=== PATIENT | male | born 1955 | race Caucasian/White ===

== ENCOUNTER 2021-12-24 09:54 | Outpatient (CLI) | payer MEDICARE, SELFPAY ==
[2021-12-24 19:39] LABS: Alanine Aminotransferase 25 U/L (6-50); Albumin Level 4.7 g/dL (3.5-5.1); Alkaline Phosphatase 94 U/L (38-126); Anion Gap 7 mmol/L (8-16); Aspartate Amino Transferase 55 U/L (17-59); Bilirubin,Total 1.1 mg/dL (0.2-1.3); Blood Urea Nitrogen 13 mg/dL (9-20); Calcium 9.3 mg/dL (8.4-10.2); Carbon Dioxide 30 mmol/L (22-30); Chloride 102 mmol/L (98-107); Estimated Glomerular Filt Rate > 60; Glucose 97 mg/dL (65-110); Potassium 4.7 mmol/L (3.4-5.0); Sodium 139 mmol/L (137-145)
[2021-12-24 19:45] LABS: Basophils Absolute Auto 0.1 K/mm3 (0.0-0.1); Basophils Percent Auto 1.1 % (0.2-1.2); Eosinophils Absolute Auto 0.2 K/mm3 (0-0.3); Eosinophils Percent Auto 3.6 % (0-4.4); Hematocrit 51.8 % (42.0-52.0); Hemoglobin 16.7 g/dL (14.0-18.0); Immature Granulocyte Absolute 0.01 K/mm3 (0.00-0.031); Immature Granulocyte Percent A 0.2 % (0-0.5); Lymphocytes Percent Auto 33.7 % (18.3-44.2); Mean Corpuscular HGB Conc 32.2 g/dl (32-36); Mean Corpuscular Volume 96.1 fl (80-100); Mean Platelet Volume 12.9 fl (7.4-10.4); Monocytes Absolute Auto 0.3 K/mm3 (0.1-0.6); Monocytes Percent Auto 6.7 % (2.6-8.5); Neutrophils Absolute Auto 2.6 K/mm3 (1.3-6.7); Neutrophils Percent Auto 54.7 % (45.5-73.1); Platelet Count Result 169 k/mm3 (150-375); Red Blood Count 5.39 M/mm3 (4.6-6.20); White Blood Count 4.8 K/mm3 (4.5-10.0)
[2021-12-24 22:03] LABS: Cholesterol 227 mg/dL (0-200); HDL Direct 52 mg/dL; Triglycerides 119 mg/dL (<150)
[2021-12-24 22:14] LABS: LDL Cholesterol Direct 132 mg/dL
== END 2021-12-24 09:55 | disposition home or self-care (01) ==
PROVIDERS: PCP Family Medicine; Visit Provider Family Medicine
DX: E78.5 Hyperlipidemia, unspecified (principal); I10 Essential (primary) hypertension; Z79.899 Other long term (current) drug therapy
CPT/HCPCS: 36415; 80053; 80061; 85025

== ENCOUNTER 2023-01-04 07:03 | Outpatient (CLI) | payer MEDICARE, SELFPAY ==
[2023-01-04 19:00] LABS: Hematocrit 50.8 % (42.0-52.0); Hemoglobin 15.6 g/dL (14.0-18.0); Mean Corpuscular HGB Conc 30.7 g/dl (32-36); Mean Corpuscular Hemoglobin 29.9 pg (26-34); Mean Corpuscular Volume 97.5 fl (80-100); Mean Platelet Volume 12.9 fl (7.4-10.4); Platelet Count Result 153 k/mm3 (150-375); Red Blood Count 5.21 M/mm3 (4.6-6.20); Red Cell Distribution Width 13.2 % (11.5-14.5); White Blood Count 5.5 K/mm3 (4.5-10.0)
[2023-01-04 19:14] LABS: Alanine Aminotransferase 22 U/L (6-50); Albumin Level 4.4 g/dL (3.5-5.1); Alkaline Phosphatase 75 U/L (38-126); Anion Gap 9 mmol/L (8-16); Aspartate Amino Transferase 54 U/L (17-59); Bilirubin,Total 0.9 mg/dL (0.2-1.3); Blood Urea Nitrogen 13 mg/dL (9-20); Calcium 9.3 mg/dL (8.4-10.2); Carbon Dioxide 25 mmol/L (22-30); Chloride 104 mmol/L (98-107); Estimated Glomerular Filt Rate > 60; Glucose 105 mg/dL (65-110); Potassium 4.4 mmol/L (3.4-5.0); Sodium 138 mmol/L (137-145)
== END 2023-01-04 07:04 | disposition home or self-care (01) ==
PROVIDERS: PCP Family Medicine; Visit Provider Family Medicine
DX: E78.5 Hyperlipidemia, unspecified (principal); I10 Essential (primary) hypertension; Z00.00 Encounter for general adult medical examination without abnormal findings; Z13.89 Encounter for screening for other disorder; Z80.8 Family history of malignant neoplasm of other organs or systems; Z12.5 Encounter for screening for malignant neoplasm of prostate
CPT/HCPCS: 36415; 80053; 84153; 85027; G0103

== ENCOUNTER 2023-06-28 14:43 | Outpatient (CLI) | payer MEDICARE, SELFPAY ==
[2023-06-28 19:48] LABS: Hematocrit 48.9 % (42.0-52.0); Hemoglobin 15.4 g/dL (14.0-18.0); Mean Corpuscular HGB Conc 31.5 g/dl (32-36); Mean Corpuscular Hemoglobin 29.9 pg (26-34); Mean Platelet Volume 13.3 fl (7.4-10.4); Platelet Count Result 145 k/mm3 (150-375); Red Blood Count 5.15 M/mm3 (4.6-6.20); Red Cell Distribution Width 12.8 % (11.5-14.5); White Blood Count 6.3 K/mm3 (4.5-10.0)
[2023-06-28 20:02] LABS: Alanine Aminotransferase 24 U/L (6-50); Albumin Level 4.7 g/dL (3.5-5.1); Alkaline Phosphatase 82 U/L (38-126); Anion Gap 7 mmol/L (4-12); Aspartate Amino Transferase 51 U/L (17-59); Bilirubin,Total 1.1 mg/dL (0.2-1.3); Blood Urea Nitrogen 18 mg/dL (9-20); Calcium 9.1 mg/dL (8.4-10.2); Carbon Dioxide 24 mmol/L (22-30); Chloride 109 mmol/L (98-107); Cholesterol 214 mg/dL (0-200); Estimated Glomerular Filt Rate > 60; Glucose 92 mg/dL (65-110); HDL Direct 63 mg/dL; Potassium 4.1 mmol/L (3.4-5.0); Sodium 140 mmol/L (137-145); Triglycerides 104 mg/dL (<150)
[2023-06-28 20:13] LABS: LDL Cholesterol Direct 130 mg/dL
[2023-06-28 20:17] LABS: Vitamin D 25 Hydroxy 25.5 ng/mL
== END 2023-06-28 14:44 | disposition home or self-care (01) ==
LOC: ANHBWCLAB 14:50
PROVIDERS: PCP Family Medicine; Visit Provider Family Medicine
DX: E78.5 Hyperlipidemia, unspecified (principal); I10 Essential (primary) hypertension; Z79.899 Other long term (current) drug therapy
CPT/HCPCS: 36415; 80053; 80061; 82306; 82607; 85027

== ENCOUNTER 2024-01-05 08:02 | Outpatient (CLI) | payer MEDICARE, SELFPAY ==
[2024-01-05 20:26] LABS: Hematocrit 50.5 % (42.0-52.0); Hemoglobin 16.1 g/dL (14.0-18.0); Mean Corpuscular HGB Conc 31.9 g/dl (32-36); Mean Corpuscular Volume 97.3 fl (80-100); Platelet Count Result 132 k/mm3 (150-375); Red Blood Count 5.19 M/mm3 (4.6-6.20); Red Cell Distribution Width 13.2 % (11.5-14.5); White Blood Count 7.8 K/mm3 (4.5-10.0)
[2024-01-05 21:25] LABS: Alanine Aminotransferase 29 U/L (6-50); Albumin Level 4.4 g/dL (3.5-5.1); Alkaline Phosphatase 88 U/L (38-126); Anion Gap 8 mmol/L (4-12); Aspartate Amino Transferase 45 U/L (17-59); Bilirubin,Total 1.1 mg/dL (0.2-1.3); Blood Urea Nitrogen 19 mg/dL (9-20); Calcium 9.4 mg/dL (8.4-10.2); Carbon Dioxide 29 mmol/L (22-30); Chloride 102 mmol/L (98-107); Estimated Glomerular Filt Rate > 60; Glucose 101 mg/dL (65-110); Sodium 139 mmol/L (137-145)
[2024-01-05 21:56] LABS: Prostate Specific Antigen 1.1 ng/mL (< OR = 4.0)
[2024-01-05 23:09] LABS: Vitamin D 25 Hydroxy 84.4 ng/mL
== END 2024-01-05 08:03 | disposition home or self-care (01) ==
LOC: ANHBWCLAB 08:10
PROVIDERS: PCP Family Medicine; Visit Provider Family Medicine
DX: Z12.5 Encounter for screening for malignant neoplasm of prostate (principal); E78.5 Hyperlipidemia, unspecified; I10 Essential (primary) hypertension; Z79.899 Other long term (current) drug therapy
CPT/HCPCS: 36415; 80053; 82306; 82607; 84153; 85027; G0103

== ENCOUNTER 2024-04-12 08:05 | Outpatient (CLI) | payer MEDICARE, SELFPAY ==
--- OUTSIDE RECORDS SUMMARY | 2024-04-12 08:12 | XMS_ITS ---
Author Organization [facility] Address [address] [place] [address] Phone Care Team Providers Care Wrapper Sheeter Name Role Phone Unavailable Unavailable Unavailable Plan of Treatment No Plan of Treatment Recorded Assessments Includes: Assessments for all patient encounters No Assessments Recorded Medical Equipment - Implanted Devices Includes: Current and historical Devices No Medical Equipment Recorded Medications Administered Includes: Administered Medications in patient's chart No Administered Medications Recorded Results Includes: Results from 04/13/2023 through 04/12/2024 No Results Recorded For Specified Dates History of Present Illness History of Present Illness not supported for this document type No History of Present Illness Recorded Social History No Social History Recorded - Smoking Status Unknown Medical History Includes: Medical History in patient's chart No Medical History Recorded Family History Includes: Family History in patient's chart No Family History Recorded Review of Systems Review of Systems not supported for this document type No Review of Systems Recorded Mental Status No Mental Status Recorded Functional Status No Functional Status Recorded Physical Exam Physical Exam not supported for this document type No Physical Exam Recorded Clinical Notes Includes: Signed Clinical Notes starting from 02/27/2022 No Clinical Notes Recorded
--- OUTSIDE RECORDS SUMMARY | 2024-04-12 08:12 | XMS_ITS | Clinical Summary ---
Author Organization [facility] Address [address] [place] [address] Phone Care Team Providers Care Assistant Women'S Soccer Coach Name Role Phone Unavailable Unavailable Unavailable Reason for Visit and Chief Complaint NEW PATIENT VISIT Plan of Treatment No Plan of Treatment Recorded Assessments Includes: Assessments from this encounter No Assessments Recorded Medical Equipment - Implanted Devices Includes: Current Devices No Medical Equipment Recorded Medications Administered Includes: Administered Medications from this encounter No Administered Medications Recorded Results Includes: Results discussed during this encounter No Results Recorded For Specified Dates History of Present Illness Includes: History of Present Illness from this encounter No History of Present Illness Recorded Social History No Social History Recorded - Smoking Status Unknown Medical History Includes: Medical History addressed during this encounter No Medical History Recorded Family History Includes: Family History addressed during this encounter No Family History Recorded Review of Systems Includes: Review of Systems from this encounter No Review of Systems Recorded Mental Status Includes: Mental Status from this encounter No Mental Status Recorded Functional Status Includes: Functional Status from this encounter No Functional Status Recorded Physical Exam Includes: Physical Exam from this encounter No Physical Exam Recorded Encounters Encounter Provider Location Date Check-In Time Check- Out Time Diagnosis NEW PATIENT VISIT [facility] 7 1:15PM 11:59PM Clinical Notes Includes: Clinical Notes from this encounter No Clinical Notes Recorded
--- OUTSIDE RECORDS SUMMARY | 2024-04-12 08:12 | XMS_ITS ---
Care Plan - [facility] Created on: April 12, 2024 JENARO NAQVI : 1955 Sex: Male Author Organization [facility] Address [address] [place] [address] Phone Care Team Providers Care Teacher Advisor Name Role Phone Unavailable Unavailable Unavailable
--- OUTSIDE RECORDS SUMMARY | 2024-04-12 08:13 | XMS_ITS | Encounter Summary ---
Author Organization [facility] Address [address] [place] [address] Care Team Providers Care Clinical Nursing Assistant Name Role Phone Marsha Garcia PIN TICKET MACHINE OPERATOR Primary Care Provider [phone] Kee Cruz MD Unavailable [phone] Karen Diaz PIN TICKET MACHINE OPERATOR Primary Care Provider [phone] Marsha Garcia PIN TICKET MACHINE OPERATOR Primary Care Provider [phone] Karen Diaz NP Unavailable Karen Diaz NP Primary Care Provider [phone] Sumit Muñoz MD Primary Care Provider [phone] Reason for Visit * Reason Onset Date Comments Scheduling Appointments 09/04/2019 Called f or left hip injection appointment reminder Encounter Details Date Type Department Care Team (Late st Contact Info) Description 09/04/2019 Telephone [facility] [address] [place] [phone] [address] Scheduling Appointments (Called for left hip injection appointment reminder) Social History Tobacco Use Types Packs/Day Years Used Date Smoking Tobacco: Never Smokeless Tobacco: Never Alcohol Use Standard Drinks/Week Comments Yes 0 (1 standard drink = 0.6 oz pur e alcohol) socially PHQ-2 Answer Date Recorded PHQ-2 Score 0 05/12/2019 Sex and Gender Information Value Date Recorded Sex Assigned at Not on file Legal Sex Male 8:53 AM NEUROLOGY PHYSICIAN Gender Identity Male 01/13/2021 7:04 AM NEUROLOGY PHYSICIAN Sexual Orientation Straight 06/16/2019 7: 10 AM CDT documented as of this encounter Plan of Treatment Not on file documented as of this encounter Visit Diagnoses Not on filedocumented in this encounter Care Teams Clinical Nursing Assistant Relationship Specialty Start Date End Date Marsha Garcia NP PCP - General Family Medicine 05/12/19 01/31/20 Karen Diaz NP PCP - General 02/01/20 02/15/20 Marsha Garcia NP PCP - General Family Medicine 02/16/20 01/19/21 Karen Diaz NP PCP - General Family Medicine 01/20/21 03/15/22 Sumit Muñoz MD PCP - General Family Practice 03/16/22 Kee Cruz MD Surgeon Orthopedic Surgery 11/28/19 Karen Diaz NP Nurse Practitioner Family Medicine 02/16/20 03/15/22 documented as of this encounter
--- OUTSIDE RECORDS SUMMARY | 2024-04-12 08:13 | XMS_ITS | Clinical Summary ---
Author Organization [facility] Address [address] [facility] [address] [place] [phone] Phone Care Team Providers Care Valve Fitter Name Role Phone Kee Cruz MD Unavailable [phone] Sumit uMñoz MD Primary Care Provider [phone] Allergies Active Allergy Reactions Criticality Noted Date Comments Iodinated Contrast Media Hives Medium Reaction: Hives, Xbrldnn-Lbj-Vrn Reductase Inhibitors Other (See comments) Low 07/29/2017 Sherley. Has tried 4 different ones. Medications lisinopriL (PRINIVIL,ZESTR IL) 5 mg tablet Take 1 tablet (5 mg total) by mouth daily 90 tablet 1 2 Active aspirin (Ecotrin) 325 mg enteric coated tablet Take 1 tablet (325 mg total) by mouth daily 14 tablet 2 Active ezetimibe (ZETIA) 10 mg tablet Take 1 tablet (10 mg total) by mouth daily Active fluticasone propionate (FLONASE) 50 mcg/actuation nasal spray Administer 1 spray into each nostril daily Active naproxen (NAPROSYN) 500 mg tablet Take 1 tablet (500 mg total) by mouth 2 (two) times a day with meals 60 tablet 2 4 Active Active Problems Problem Noted Date Diagnosed Date Hip abductor tendinitis, right 04/15/2023 History of arthroplasty of right hip 04/15/2023 Diverticulosis of colon without diverticulitis 0 03/16/2022 Class 1 obesity with body ma ss index (BMI) of 31.0 to 31.9 in adult 03/16/2022 Bucket-handle tear of latera l meniscus of right knee as current injury 07/16/2021 Overview (07/16/2021): Added automatically from request for surgery [id number] Assessment & Plan (07/18/2021 9:04 AM CDT): Pt having surgery 08/04/[address] Cruz. Aftercare following right hip joint replacement surgery 05/14/2020 Primary osteoarthritis of right hip 03/11/2020 Primary osteoarthritis of left hip 08/29/2019 History of colon polyps 04/06/2018 Overview (05/12/2019): Colonoscopy done 04/15/18, due again in 5 yrs. 04/2023 will be due Chronic back pain 07/29/2017 Assessment & Plan (05/12/2019 8:32 AM CDT): Discussed/ordered labs, Condition is worsening encouraged healthy, low carbohydrate lifestyle and at least 150min/week of exercise, continue on naproxen 220mg as needed He was taking 2 aleve a day but still can't find a comfortable position. This starts in lower left back, goes down buttock into left ankle He can hardly put socks on He has tried ibuprofen and naproxen, in 2018 he did PT at [facility] which helped, but now it is back with a vengeance He uses heat which seems to help Discussed with patient that this very much sounds like sciatica. We will have patient take naproxen 500mg twice daily as needed. Instructed patient on a couple stretching maneuvers, he may need to see a chiropractor and we will refer back to physical therapy. Recommend alternating ice/heat on the area Bleeding hemorrhoid 07/29/2017 Assessment & Plan (05/12/2019 8:02 AM CDT): Condition is stable, he has hemorrhoids constantly. Pt saw Dr. Monteiro (GI) last year and he was not concerned about it. anusol cream works well. Left hip pain 07/29/2017 Assessment & Plan (05/12/2019 8:32 AM CDT): Discussed/ordered labs, Condition is worsening encouraged healthy, low carbohydrate lifestyle and at least 150min/week of exercise, continue on naproxen 220mg as needed He was taking 2 aleve a day but still can't find a comfortable position. This starts in lower left back, goes down buttock into left ankle He can hardly put socks on He has tried ibuprofen and naproxen, in 2018 he did PT at [facility] which helped, but now it is back with a vengeance He uses heat which seems to help Discussed with patient that this very much sounds like sciatica. We will have patient take naproxen 500mg twice daily as needed. Instructed patient on a couple stretching maneuvers, he may need to see a chiropractor and we will refer back to physical therapy. Recommend alternating ice/heat on the area Fatigue 03/14/2014 Overview (05/15/2016): Fatigue Mixed hyperlipidemia 06/24/2013 Overview (05/14/2016): MIXED HYPERLIPIDEMIA Assessment & Plan (07/18/2021 9:08 AM CDT): Awaiting labs and labs ordered for next visit. Cholesterol was still not at goal last time labs were drawn. Pravastatin was increased to 40mg. Continues Pravastatin and Zetia. Assessment & Plan (01/20/2021 9:36 AM RATE ANALYST): Labs ordered Continues Pravastatin and Zetia Assessment & Plan (05/12/2019 8:04 AM CDT): Discussed/ordered labs, Condition is stable encouraged healthy, low carbohydrate lifestyle and at least 150min/week of exercise, continue on zetia and pravastatin. Push lots of water Hypertension, essential 06/24/2013 Overview (05/15/2016): ELEV BL PRES W/O HYPERTN Assessment & Plan (07/18/2021 9:09 AM CDT): Awaiting labs. BP stable in office. No more symptoms to report. Home Bps at home were within range. Pt stable on Lisinopril 5mg. Assessment & Plan (01/20/2021 9:38 AM RATE ANALYST): Home BP's running 140-150/112 and patient has noted more dizziness (occasionally and visual disturbances). BP initially in office is high, repeat is normal. Will start Lisinopril 5 mg for labile BP and have patient send in home BP's in 2 weeks. Assessment & Plan (05/12/2019 7:59 AM CDT): Home bp readings 121-139/72-82 Pt took bp while on zoom and reading was Localized osteoarthrosis 06/24/2013 Overview (05/15/2016): LOC OSTEOARTH NOS-UNSPEC Assessment & Plan (05/12/2019 7:57 AM CDT): Discussed/ordered labs, Condition is worsening encouraged healthy, low carbohydrate lifestyle and at least 150min/week of exercise, continue on naproxen 220mg as needed He was taking 2 aleve a day but still can't find a comfortable position. This starts in lower left back, goes down buttock into left ankle He can hardly put socks on He has tried ibuprofen and naproxen, in 2018 he did PT at [facility] which helped, but now it is back with a vengeance He uses heat which seems to help Resolved Problems Problem Noted Date Diagnosed Date Resolved Date Elevated lactic acid level 03/17/2022 0 03/17/2022 SBO (small bowel obstruction) 03/16/2022 03/17/2022 Rectal bleeding 04/06/2018 05/12/2019 Overview (04/06/2018): Added automatically from request for surgery [id number] History of colonoscopy with polypectomy 03/25/2018 05/12/2019 Pure hypercholesterolemia 06/24/2013 Overview (05/15/2016): PURE HYPERCHOLESTEROLEM Adiposity 06/24/2013 07/29/2017 Overview (05/15/2016): OBESITY NOS Immunizations Immunization Administration Dates Next Due DTaP 06/03/2005 Influenza, Quadrivalent, Spl it, Preservative Free, Intradermal 02/13/2016 Influenza, Quadrivalent, Spl it, Preservative Free, Intramuscular 01/31/2020,11/18/2018,03/25/2018 Influenza, Trivalent, IM (MDV) 01/20/2021,2014,12/29/2007 Influenza, Unspecified 01/08/2022,2020(Deferred: Patient Refused),07/29/2017(Deferred: Patient Refused) Tdap 01/09/2016 Surgical History Surgery Date Site/Laterality Comments OTHER SURGICAL HISTORY jaw cyst resection COLONOSCOPY last screening 2014 MANDIBLE SURGERY 02/09/1992 N/A Cyst removal from [place] FLUORO GUIDED INJECTION H IP LEFT 09/05/2019 Left FLUORO GUIDED INJECTION HIP RIGHT 02/29/2020 Right JOINT REPLACEMENT HIP ARTHROPLASTY Left EXPLORATORY LAPAROTOMY 03/16/2022 SBO closed look obstruction TOTAL HIP ARTHROPLASTY Right Medical History Medical History Date Comments Lyme disease 1993 lyme disease- ho spitalized for 15 days. Still has some tingling in hands and feet as well as partial paralysis in his face. Cyst of jaw surgically remov ed Hepatitis A 1987 Hyperlipidemia Arthritis 02/2014 Rectal bleeding 04/06/2018 Added automatica lly from request for surgery [id number] History of colonoscopy with polypectomy 03/25/2018 Hypertension 10/2020 Family History Medical History Relation Name Comments Hypertension Brother 1 Harris Katz Hypertension; Stroke Brother 1 Harris Katz Obesity Brother 2 Harpreet Katz Obesity; Hemochromatosis Brother 3 Hemochromato sis; Arthritis Father George Katz Heart failure Father George Katz Congestive hea rt failure; Cause of : Congestive heart failure Hypertension Father George Katz Hypertension; Stroke Father George Katz COPD Mother Vi Katz COPD; Emphysema Mother Vi Katz Other Mother Vi Katz Alive and well; Hypertension Other 1 Family history of Hypertension; Stroke Other 2 Family history of Stroke; Colon cancer Neg Hx Relation Name Status Comments Brother 1 Harris Katz Brother 2 Harpreet Katz Brother 3 Father George Katz Alive Mother Vi Katz Alive Other 1 Other 2 Social History Tobacco Use Types Packs/Day Years Used Date Smoking Tobacco: Never Smokeless Tobacco: Never Alcohol Use Standard Drinks/Week Comments Yes 0 (1 standard drink = 0.6 oz pur e alcohol) socially AUDIT-C Answer Date Recorded Q1: How often do you have a drink containing alc ohol? Monthly or less 03/16/2022 Q2: How many drinks containi ng alcohol do you have on a typical day when you are drinking? 1 or 2 03/16/2022 Q3: How often do you have si x or more drinks on one occasion? Never 03/16/2022 PHQ-2 Answer Date Recorded PHQ-2 Total Score (If total score is 3 or more points, staff should administer the PHQ-9) 0 07/18/2021 Personal Safety Answer Date Recorded Getting School Help Needed Not on file 03/19 Sex and Gender Information Value Date Recorded Sex Assigned at Not on file Legal Sex Male 8:53 AM RATE ANALYST Gender Identity Male 01/13/2021 7:04 AM RATE ANALYST Sexual Orientation Straight 06/16/2019 7: 10 AM CDT Obstetrics History Last Filed Vital Signs Vital Sign Reading Time Taken Comments Blood Pressure 137/91 04/15/2023 11:06 AM RATE ANALYST Pulse 59 04/15/2023 11:06 AM RATE ANALYST Temperature 36.1 C (97 F) 03/18/2022 5:58 AM RATE ANALYST Respiratory Rate 18 03/18/2022 5:58 AM RATE ANALYST Oxygen Saturation 97% 03/18/2022 5:58 AM RATE ANALYST Inhaled Oxygen Concentration - - Weight 88.9 kg (196 lb) 04/15/2023 11:06 AM RATE ANALYST Height 167.6 cm (5' 6 ) 04/15/2023 11:06 AM RATE ANALYST Body Mass Index 31.64 04/15/2023 11:06 AM RATE ANALYST Plan of Treatment Health Maintenance Due Date Last Done Comments Hepatitis B Screening 1974 Pneumococcal vaccine 65+ (1 of 1 - PCV) 2006 Zoster Vaccine (1 of 2) 2006 Well Visit 65+ 2021 11/18/2018, 07/29/2017 Depression Screening 07/18/2022 07/18/2021, 01/20/2021, 01/31/2020, Additional history exists Prostate Cancer Screening-PSA 01/20/2023, 11/18/2018, 07/29/2017 Fall Risk Assessment 03/18/2023 03/18/2022, 01/20/2021, 10/31/2019 Colon Cancer Screening-Colonoscopy 04/16/2023 04/15/2018, 02/08/2015 Covid-19 Vaccine (4 - 2023-2 5 season) 2023 01/20/2021, 06/05/2020, 05/08/2020 Influenza Vaccine (#1) 2023 2, 01/20/2021, 01/31/2020, Additional history exists DTaP/Tdap/Td Vaccine (3 - Td or Tdap) 01/08/2026 01/09/2016, 06/03/2005 Hepatitis C Screening Completed 07/29/2017 Colon Cancer Screening-CT Colonography Discontinued 04/15/2018, 02/08/2015 Colon Cancer Screening-DNA Stool Discontinued 04/16/19, 02/08/2015 Colon Cancer Screening-FIT Discontinued 04/15/2018, Colon Cancer Screening-Sigmoidoscopy Discontinued 04/15/2018, 02/08/2015 Medical Devices Implanted Type Area Hot Metal Car Operator Device Identifier Shelf Expiration Date Model / Serial / Lot [employer] [id number] [place] 58mm Sector Hip Shell Acetabular Gription Sterile Latex Free - [id number] Implanted:Qty: 1 on 2019 by Kee Cruz MD at [facility] Left: Hip [employer] 12/08/2028 [id number] / / [id number] [employer] [id number] [place] 58mm 36mm Hip Neutral Liner Acetabular Altrx Sterile Latex Free - [id number] Implanted:Qty: 1 on 2019 by Kee Cruz MD at [facility] Left: Hip [employer] 09/07/2024 [id number] / / [id number] [employer] [id number] Actis 105mm Collar Hip 5 High Offset Stem Femoral - [id number] Implanted:Qty: 1 on 2019 by Kee Cruz MD at [facility] Left: Hip [employer] 09/07/2029 [id number] / / [id number] [employer] [id number] Articul/Humph[place] 36mm Cementless Hip +1.5mm 12/14 Taper Head Femoral Latex Free - [id number] Implanted:Qty: 1 on 2019 by Kee Cruz MD at [facility] Left: Hip [employer] 09/07/2024 [id number] / / [id number] [employer] [id number] [place] 58mm Sector Hip Shell Acetabular Gription Sterile Latex Free - [id number] Implanted:Qty: 1 on 05/01/2020 by Kee Cruz MD at [facility] Right: Hip [employer] 03/10/2030 [id number] / / [id number] [employer] [id number] [place] 58mm 36mm Hip Neutral Liner Acetabular Altrx Sterile Latex Free - [id number] Implanted:Qty: 1 on 05/01/2020 by Kee Cruz MD at [facility] Right: Hip [employer] 03/10/2025 [id number] / / [id number] [employer] [id number] Actis 105mm Collar Hip 5 High Offset Stem Femoral - [id number] Implanted:Qty: 1 on 05/01/2020 by Kee Cruz MD at [facility] Right: Hip [employer] 02/07/2030 [id number] / / [id number] [employer] [id number] Articul/Humph[place] 36mm Cementless Hip +5mm 12/14 Taper Head Femoral Latex Free - [id number] Implanted:Qty: 1 on 05/01/2020 by Kee Cruz MD at [facility] Right: Hip [employer] 02/07/2025 [id number] / / [id number] Procedures Procedure Name Priority Date/Time Associated Diagnosis Comments PSA SCREEN Routine 01/20/2021 9:34 AM RATE ANALYST Prostate cancer screening COLONOSCOPY 04/15/2018 2:47 PM RATE ANALYST HEPATITIS C ANTIBODY Routine 07/29/2017 9:42 AM CDT Need for hepatitis C screening test from Last 3 Months or Most Recently Relevant to Health Maintenance Results * PSA screen (01/20/2021 9:34 AM RATE ANALYST) PSA-Total 0.91 <=5.40 ng/mL [facility] ([place]) Comment: Interpretive Data AGE SEX REFERENCE INTERVAL 0 minutes-150 years Female None 0 minutes-49 years Male None 50-59 years Male 0-3.90 60-69 years Male 0-5.40 70-79 years Male 0-6.20 80-150 years Male 0-6.20 Current interpretive data last revised 2018. Testing performed by: [facility], [address] [place] [address]., [id number] Blood 01/20/2021 9:34 AM RATE ANALYST 01/20/2021 2:26 PM RATE ANALYST us Karen Diaz FABRICATOR FOAM RUBBER LAB BLOOD ORDERABLES Final Resul t [facility] [address] [facility] Department [place] [address] * COLONOSCOPY (04/15/2018 2:47 PM RATE ANALYST) Anatomical Region Laterality Modality Other Narrative Procedure Note Nirav Euceda MD - 04/15/2018 2:47 PM CST - [facility] Endoscopy Lab Patient Name: Willie Katz Procedure Date: 04/15/2018 2:47 PM Date of : 1955 Admit Type: Outpatient Age: 62 Gender: Male Note Status: Finalized Attending MD: Nirav Euceda M.D. Procedure Date: 04/15/2018 Procedure: Colonoscopy Indications: Rectal bleeding Providers: Nirav Euceda M.D., Kee Shaffer M.D. (Anesthesia Staff), Jasmina Buchanan RN Referring MD: Jesica Ridley Medicines: Monitored Anesthesia Care Complications: No immediate complications. Estimated Blood Loss: Estimated blood loss: none. Estimated blood loss:none. Procedure: Pre-Anesthesia Assessment: - Airway Examination: normal oropharyngeal airwayand neck mobility. - Respiratory Examination: clear to auscultation. - ASA Grade Assessment: III - A patient with severe systemic disease. - After reviewing the risks and benefits, thepatient was deemed in satisfactory condition to undergo the procedure. - The risks and benefits of the procedure and the sedation options and risks were discussed with the patient. All questions were answered and informed consent was obtained. After I obtained informed consent, the scope waspassed under direct vision. Throughout the procedure, the patient's blood pressure, pulse, and oxygensaturations were monitored continuously. The scope was passedunder direct vision. The Colonoscope was introducedthrough the anus and advanced to the the cecum, identifiedby the appendiceal orifice, ileocecal valve andpalpation. The colonoscopy was performed with ease. The patient tolerated the procedure well. The quality of thebowel preparation was evaluated using the BBPS (BostonBowel Preparation Scale) with scores of: Right Colon = 3 (entire mucosa seen well with no residual staining, small fragments of stool or opaque liquid),Transverse Colon = 3 (entire mucosa seen well with no residual staining, small fragments of stool or opaque liquid) and Left Colon = 2 (minor amount of residualstaining, small fragments of stool and/or opaque liquid, but mucosa seen well). The total BBPS score equals 8.The quality of the bowel preparation was good. The bowel preparation used was SUPREP. Findings: The perianal exam findings include skin tags. Multiple small-mouthed diverticula were found in the sigmoid colon. Internal hemorrhoids were found during retroflexion. The hemorrhoids were severe. A medium-sized scar was found in the ascending colon. The scar tissue was healthy in appearance. Impression: - Perianal skin tags found on perianal exam. - Diverticulosis in the sigmoid colon. - Internal hemorrhoids. - No specimens collected. Recommendation: - Repeat colonoscopy in 10 years for screeningpurposes. - Discharge patient to home (ambulatory). - Use original regular Metamucil one teaspoon POBID. - Use Analpram HC Cream 2.5%: Apply externally BIDfor 2 weeks. Procedure Code(s): --- Professional --- 33878, Colonoscopy, flexible; diagnostic, including collection of specimen(s) by brushing or washing,when performed (separate procedure) Diagnosis Code(s): --- Professional --- K64.8, Other hemorrhoids K64.4, Residual hemorrhoidal skin tags K62.5, Hemorrhage of anus and rectum K57.30, Diverticulosis of large intestine without perforation or abscess without bleeding CPT copyright 2017 [employer]. All rights reserved. The codes documented in this report are preliminary and upon regional branch manager reviewmay be revised to meet current compliance requirements. Electronically signed by Nirav Euceda MD Nirav Euceda M.D. 04/15/2018 3:08:01 PM Number of Addenda: 0 Note Initiated On: 04/15/2018 2:47 PM us Nirav Euceda MD ENDOSCOPY PROCEDURES Edited Resu lt - Final * Hepatitis C antibody (07/29/2017 9:42 AM CDT) Hep C Ab Negative Negative JUAN MANUEL Blood specimen (specimen) 07/29/2017 9:42 AM CDT 07/29/2017 10:16 AM CDT Narrative JUAN MANUEL - 07/29/2017 11:14 AM CDT Douganastasiya Montoya Kanika FABRICATOR FOAM RUBBER LAB MICROBIOLOGY - GENERAL ORDERABLES Final Result [facility] MANU[facility] [id number] Department [place] [address] from Last 3 Months or Most Recently Relevant to Health Maintenance [place] [address] [facility] Advance Directives For more information, please contact: [phone] * Full Code (Latest Code Status on File) Date Activated Date Inactivated Comments 03/16/2022 7:32 AM 03/18/2022 5:57 PM * Full Code Date Activated Date Inactivated Comments 2019 11:03 AM 11/28/2019 5:47 PM Care Teams Valve Fitter Relationship Specialty Start Date End Date Sumit Muñoz MD PCP - General Family Practice 03/16/22 Kee Cruz MD Surgeon Orthopedic Surgery 11/28/19
--- OUTSIDE RECORDS SUMMARY | 2024-04-12 08:13 | XMS_ITS | Referral Summary ---
Author Organization [facility] Address [address] [facility] [address] [place] [address] Phone Care Team Providers Care Rehabilitation Tech Name Role Phone Kee Cruz MD Unavailable [phone] Sumit Muñoz MD Primary Care Provider [phone] Allergies Active Allergy Reactions Criticality Noted Date Comments Iodinated Contrast Media Hives Medium Reaction: Hives, Inueohf-Jkt-Lxf Reductase Inhibitors Other (See comments) Low 07/29/2017 [...] (07/16/2021): Added automatically from request for surgery [id number] Assessment & Plan (07/18/2021 9:04 AM CDT): [...] naproxen, in 2018 he did PT at [facility] which helped, but now it is back [...] naproxen, in 2018 he did PT at [facility] which helped, but now it is back [...] Zetia. Assessment & Plan (01/20/2021 9:36 AM SUPERVISOR ADVERTISING DISPATCH CLERKS): Labs ordered Continues Pravastatin and Zetia Assessment [...] 5mg. Assessment & Plan (01/20/2021 9:38 AM SUPERVISOR ADVERTISING DISPATCH CLERKS): Home BP's running 140-150/112 and patient has [...] naproxen, in 2018 he did PT at [facility] which helped, but now it is back with a vengeance He uses heat which seems to help Resolved Problems Problem Noted Date Diagnosed Date Resolved Date Elevated lactic acid level 03/17/2022 0 03/17/2022 SBO (small bowel obstruction) 03/16/2022 03/17/2022 Rectal bleeding 04/06/2018 05/12/2019 Overview (04/06/2018): Added automatically from request for surgery [id number] History of colonoscopy with polypectomy 03/25/2018 05/12/2019 Pure hypercholesterolemia 06/24/2013 Overview (05/15/2016): PURE HYPERCHOLESTEROLEM Adiposity 06/24/2013 07/29/2017 Overview (05/15/2016): OBESITY NOS Immunizations Immunization Administration Dates Next Due DTaP 06/03/2005 Influenza, Quadrivalent, Spl it, Preservative Free, Intradermal 02/13/2016 Influenza, Quadrivalent, Spl it, Preservative Free, Intramuscular 01/31/2020,11/18/2018,03/25/2018 Influenza, Trivalent, IM (MDV) 01/20/2021,2014,12/29/2007 Influenza, Unspecified 01/08/2022,2020(Deferred: Patient Refused),07/29/2017(Deferred: Patient Refused) Tdap 01/09/2016 Social History Tobacco Use Types Packs/Day Years [...] on file Legal Sex Male 8:53 AM SUPERVISOR ADVERTISING DISPATCH CLERKS Gender Identity Male 01/13/2021 7:04 AM SUPERVISOR ADVERTISING DISPATCH CLERKS Sexual Orientation Straight 06/16/2019 7: 10 AM CDT Last Filed Vital Signs Vital Sign Reading Time Taken Comments Blood Pressure 137/91 04/15/2023 11:06 AM SUPERVISOR ADVERTISING DISPATCH CLERKS Pulse 59 04/15/2023 11:06 AM SUPERVISOR ADVERTISING DISPATCH CLERKS Temperature 36.1 C (97 F) 03/18/2022 5:58 AM SUPERVISOR ADVERTISING DISPATCH CLERKS Respiratory Rate 18 03/18/2022 5:58 AM SUPERVISOR ADVERTISING DISPATCH CLERKS Oxygen Saturation 97% 03/18/2022 5:58 AM SUPERVISOR ADVERTISING DISPATCH CLERKS Inhaled Oxygen Concentration - - Weight 88.9 kg (196 lb) 04/15/2023 11:06 AM SUPERVISOR ADVERTISING DISPATCH CLERKS Height 167.6 cm (5' 6 ) 04/15/2023 11:06 AM SUPERVISOR ADVERTISING DISPATCH CLERKS Body Mass Index 31.64 04/15/2023 11:06 AM SUPERVISOR ADVERTISING DISPATCH CLERKS Plan of Treatment Not on file Medical Devices Implanted Type Area Educational Therapy Teacher Device Identifier Shelf Expiration Date Model / Serial / Lot [employer] [id number] Gervais 58mm Sector Hip Shell Acetabular Gription Sterile Latex Free - [id number] Implanted:Qty: 1 on 2019 by Kee Cruz MD at [facility] Left: Hip [employer] 12/08/2028 [id number] / / [id number] [employer] [id number] Gervais 58mm 36mm Hip Neutral Liner Acetabular Altrx Sterile Latex Free - [id number] Implanted:Qty: 1 on 2019 by Kee Cruz MD at [facility] Left: Hip [employer] 09/07/2024 [id number] / / [id number] [employer] [id number] Actis 105mm Collar Hip 5 High Offset Stem Femoral - [id number] Implanted:Qty: 1 on 2019 by Kee Cruz MD at [facility] Left: Hip [employer] 09/07/2029 [id number] / / [id number] [employer] [id number] Articul/Humphrey 36mm Cementless Hip +1.5mm 12/14 Taper Head Femoral Latex Free - [id number] Implanted:Qty: 1 on 2019 by Kee Cruz MD at [facility] Left: Hip [employer] 09/07/2024 [id number] / / [id number] [employer] [id number] Gervais 58mm Sector Hip Shell Acetabular Gription Sterile Latex Free - [id number] Implanted:Qty: 1 on 05/01/2020 by Kee Cruz MD at [facility] Right: Hip [employer] 03/10/2030 [id number] / / [id number] [employer] [id number] Gervais 58mm 36mm Hip Neutral Liner Acetabular Altrx Sterile Latex Free - [id number] Implanted:Qty: 1 on 05/01/2020 by Kee Cruz MD at [facility] Right: Hip [employer] 03/10/2025 [id number] / / [id number] [employer] [id number] Actis 105mm Collar Hip 5 High Offset Stem Femoral - [id number] Implanted:Qty: 1 on 05/01/2020 by Kee Cruz MD at [facility] Right: Hip [employer] 02/07/2030 [id number] / / [id number] [employer] [id number] Articul/Humphrey 36mm Cementless Hip +5mm 12/14 Taper Head Femoral Latex Free - [id number] Implanted:Qty: 1 on 05/01/2020 by Kee Cruz MD at [facility] Right: Hip [employer] 02/07/2025 [id number] / / [id number] Procedures Procedure Name Priority Date/Time Associated Diagnosis Comments PSA SCREEN Routine 01/20/2021 9:34 AM SUPERVISOR ADVERTISING DISPATCH CLERKS Prostate cancer screening COLONOSCOPY 04/15/2018 2:47 PM SUPERVISOR ADVERTISING DISPATCH CLERKS HEPATITIS C ANTIBODY Routine 07/29/2017 9:42 AM CDT Need for hepatitis C screening test from Last 3 Months or Most Recently Relevant to Health Maintenance Results * PSA screen (01/20/2021 9:34 AM SUPERVISOR ADVERTISING DISPATCH CLERKS) PSA-Total 0.91 <=5.40 ng/mL [facility] MANUEL [facility] ([place]) Comment: Interpretive Data AGE SEX REFERENCE INTERVAL 0 minutes-150 years Female None 0 minutes-49 years Male None 50-59 years Male 0-3.90 60-69 years Male 0-5.40 70-79 years Male 0-6.20 80-150 years Male 0-6.20 Current interpretive data last revised 2018. Testing performed by: [facility], [address] [place] [address], [place]., [address] Blood 01/20/2021 9:34 AM SUPERVISOR ADVERTISING DISPATCH CLERKS 01/20/2021 2:26 PM SUPERVISOR ADVERTISING DISPATCH CLERKS us Karen Diaz FREELANCE PATTERNMAKER LAB BLOOD ORDERABLES Final Resul t [id number] ([facility]) [facility] Department [place] [address] * COLONOSCOPY (04/15/2018 2:47 PM SUPERVISOR ADVERTISING DISPATCH CLERKS) Anatomical Region Laterality Modality Other Narrative Procedure Note Niarv Euceda MD - 04/15/2018 2:47 PM CST [facility] Patient Name: Willie Katz Procedure Date: 04/15/2018 2:47 PM Date of : 1955 Admit Type: Outpatient Age: 62 Gender: Male Note Status: Finalized Attending MD: Nirav Euceda M.D. Procedure Date: 04/15/2018 Procedure: Colonoscopy Indications: Rectal bleeding Providers: Nirav Euceda M.D., Kee Shaffer M.D. (Anesthesia Staff), Jasmina Buchanan RN Referring MD: Seth Ridley.N.Jairo. Medicines: Monitored Anesthesia Care Complications: No immediate [...] 2 weeks. Procedure Code(s): --- Professional --- 56019, Colonoscopy, flexible; diagnostic, including collection of specimen(s) by brushing or washing,when performed (separate procedure) Diagnosis Code(s): --- Professional --- K64.8, Other hemorrhoids K64.4, Residual hemorrhoidal skin tags K62.5, Hemorrhage of anus and rectum K57.30, Diverticulosis of large intestine without perforation or abscess without bleeding CPT copyright 2017 [employer]. All rights reserved. The codes documented in this report are preliminary and upon director television reviewmay be revised to meet current compliance requirements. Electronically signed by Nirav Euceda MD Nirav Euceda M.D. 04/15/2018 3:08:01 PM Number of Addenda: 0 Note Initiated On: 04/15/2018 2:47 PM Nirav Euceda MD ENDOSCOPY PROCEDURES Edited Resu lt - Final * Hepatitis C antibody (07/29/2017 9:42 AM CDT) Hep C Ab Negative Negative JUAN MANUEL Blood specimen (specimen) 07/29/2017 9:42 AM CDT 07/29/2017 10:16 AM CDT Narrative JUAN MANUEL - 07/29/2017 11:14 AM CDT Doug Boudreaux NP LAB MICROBIOLOGY - GENERAL ORDERABLES Final Result JUAN MANUEL [id number] Department [place] [address] from Last 3 Months or Most Recently Relevant to Health Maintenance Insurance MED[employer]ARE [employer] MEDICARE GOLD Advance Directives For more information, please contact: [phone] * Full Code (Latest Code Status on File) Date Activated Date Inactivated Comments 03/16/2022 7:32 AM 03/18/2022 5:57 PM * Full Code Date Activated Date Inactivated Comments 2019 11:03 AM 11/28/2019 5:47 PM Care Teams Rehabilitation Tech Relationship Specialty Start Date End Date Sumit Muñoz MD PCP - General Family Practice 03/16/22 Kee Cruz MD Surgeon Orthopedic Surgery 11/28/19
[2024-04-12 08:34] LABS: Hematocrit 48.1 % (42.0-52.0); Hemoglobin 15.5 g/dL (14.0-18.0); Mean Corpuscular HGB Conc 32.2 g/dl (32-36); Mean Corpuscular Hemoglobin 30.4 pg (26-34); Mean Corpuscular Volume 94.3 fl (80-100); Mean Platelet Volume 12.3 fl (7.4-10.4); Platelet Count Result 140 k/mm3 (150-375); Red Cell Distribution Width 12.9 % (11.5-14.5); White Blood Count 5.6 K/mm3 (4.5-10.0)
== END 2024-04-12 08:06 | disposition home or self-care (01) ==
PROVIDERS: PCP Family Medicine; Visit Provider Family Medicine
DX: E78.5 Hyperlipidemia, unspecified (principal); D69.6 Thrombocytopenia, unspecified
CPT/HCPCS: 36415; 85027

== ENCOUNTER 2024-04-28 10:10 | Outpatient (CLI) | payer MEDICARE, SELFPAY ==
[2024-04-28 10:50] LABS: Basophils Percent Auto 0.6 % (0.2-1.2); Eosinophils Absolute Auto 0.1 K/mm3 (0-0.3); Eosinophils Percent Auto 2.3 % (0-4.4); Hematocrit 45.5 % (42.0-52.0); Hemoglobin 14.9 g/dL (14.0-18.0); Immature Granulocyte Absolute 0.02 K/mm3 (0.00-0.031); Immature Granulocyte Percent A 0.4 % (0-0.5); Lymphocytes Absolute Auto 2.03 K/mm3 (0.9-3.2); Lymphocytes Percent Auto 38.5 % (18.3-44.2); Mean Corpuscular HGB Conc 32.7 g/dl (32-36); Mean Corpuscular Hemoglobin 30.2 pg (26-34); Mean Corpuscular Volume 92.1 fl (80-100); Mean Platelet Volume 11.9 fl (7.4-10.4); Monocytes Absolute Auto 0.4 K/mm3 (0.1-0.6); Monocytes Percent Auto 7.2 % (2.6-8.5); Neutrophils Absolute Auto 2.7 K/mm3 (1.3-6.7); Platelet Count Result 172 k/mm3 (150-375); Red Blood Count 4.94 M/mm3 (4.6-6.20); Red Cell Distribution Width 12.3 % (11.5-14.5); White Blood Count 5.3 K/mm3 (4.5-10.0)
--- OUTSIDE RECORDS SUMMARY | 2024-04-28 11:17 | XMS_ITS ---
Author Organization [facility] Address [address] [place] [address] Phone Care Team Providers Care Automobile Service Station Manager Name Role Phone Unavailable Unavailable Unavailable Plan of Treatment No Plan of Treatment Recorded Assessments Includes: Assessments for all patient encounters No Assessments Recorded Medical Equipment - Implanted Devices Includes: Current and historical Devices No Medical Equipment Recorded Medications Administered Includes: Administered Medications in patient's chart No Administered Medications Recorded Results Includes: Results from 04/29/2023 through 04/28/2024 No Results Recorded For Specified Dates History [...]
--- OUTSIDE RECORDS SUMMARY | 2024-04-28 11:17 | XMS_ITS | Continuity of Care Document ---
Author Organization [facility] Address [address] [place] [address] Phone Care Team Providers Care City Alderman Name Role Phone Bartolo SWARTZ, Lakeisha Unavailable Unavailable Advance Directives Directive Yes / No Effective Date File Name No Information Encounters Encounter Description Practice Location Reason(s) For Visit Diagnoses Date Provider Providers Copied on Encounter [facility], [address], [place], [place], [id number], [place] tel:[phone] [facility] No Information Bartolo Suazo. [address] [place], [place], [id number] , [place]. tel:[phone] Family History Family Member Type Diagnosis Age At Onset No Information Payers Payer name Insurance type Covered constitution party ID Authoriza tion(s) No Information Social History Type Description Quantity Date Captured Comments Sex Male Smoking Status No Information Chief Complaint And Reason For Visit No Information Reason For Referral Reason For Referral No Information History Of Present Illness Encounter Date Complaint History Of Prese nt Illness No Information Functional Status Date Functional Assessmen t No Information Instructions Date Instruction Additional Infor mation No Information Assessments Type Assessment Date No Information Patient Care Teams Name Effective Dates (start - stop) Status Members No Information
--- OUTSIDE RECORDS SUMMARY | 2024-04-28 11:18 | XMS_ITS | Encounter Summary ---
Author Organization [facility] Address [address] [place] [address] Care Team Providers Care Export Sales Assistant Name Role Phone Marsha Garcia CELLULAR PLASTICS CUTTER Primary Care Provider Kee Cruz MD Unavailable [phone] Karen Diaz CELLULAR PLASTICS CUTTER Primary Care Provider [phone] Marsha Garcia CELLULAR PLASTICS CUTTER Primary Care Provider [phone] Karen Diaz NP Unavailable Karen Diaz NP Primary Care Provider [phone] Sumit Muñoz MD Primary Care Provider [phone] Reason for Visit * Reason Onset Date Comments Scheduling Appointments 09/04/2019 Called f or left hip injection appointment reminder Encounter Details Date Type Department Care Team (Late st Contact Info) Description 09/04/2019 Telephone [facility] [address] [place] [id number] Norma Suazo RT Scheduling Appointments (Called for [...] on file Legal Sex Male 8:53 AM ORNAMENTER HAND Gender Identity Male 01/13/2021 7:04 AM ORNAMENTER HAND Sexual Orientation Straight 06/16/2019 7: 10 AM CDT documented as of this encounter Plan of Treatment Not on file documented as of this encounter Visit Diagnoses Not on filedocumented in this encounter Care Teams Export Sales Assistant Relationship Specialty Start Date End Date [...]
--- OUTSIDE RECORDS SUMMARY | 2024-04-28 11:18 | XMS_ITS ---
Care Plan - [facility] Created on: April 28, 2024 JENARO NAQVI : 1955 Sex: Male Author Organization [facility] Address [address] [place] [address] Phone Care Team Providers Care Roll Hand Name Role Phone Unavailable Unavailable Unavailable
--- OUTSIDE RECORDS SUMMARY | 2024-04-28 11:18 | XMS_ITS | Referral Summary ---
Author Organization [facility] Address [address] [facility] [address] [place] [id number] Phone Care Team Providers Care Army Manager Name Role Phone Kee Cruz MD Unavailable [phone] Sumit Muñoz MD Primary Care Provider [phone] Allergies Active Allergy Reactions Criticality Noted Date Comments Iodinated Contrast Media Hives Medium Reaction: Hives, Yydxusd-Kwn-Tod Reductase Inhibitors Other (See comments) Low 07/29/2017 [...] (07/16/2021): Added automatically from request for surgery [id number] Assessment & Plan (07/18/2021 9:04 AM CDT): [...] naproxen, in 2018 he did PT at [facility] which helped, but now it is back [...] naproxen, in 2018 he did PT at [facility] which helped, but now it is back [...] Zetia. Assessment & Plan (01/20/2021 9:36 AM NET SOLUTIONS ARCHITECT): Labs ordered Continues Pravastatin and Zetia Assessment [...] 5mg. Assessment & Plan (01/20/2021 9:38 AM NET SOLUTIONS ARCHITECT): Home BP's running 140-150/112 and patient has [...] naproxen, in 2018 he did PT at [facility] which helped, but now it is back with a vengeance He uses heat which seems to help Resolved Problems Problem Noted Date Diagnosed Date Resolved Date Elevated lactic acid level 03/17/2022 0 03/17/2022 SBO (small bowel obstruction) 03/16/2022 03/17/2022 Rectal bleeding 04/06/2018 05/12/2019 Overview (04/06/2018): Added automatically from request for surgery [id number] History of colonoscopy with polypectomy 03/25/2018 05/12/2019 [...] on file Legal Sex Male 8:53 AM NET SOLUTIONS ARCHITECT Gender Identity Male 01/13/2021 7:04 AM NET SOLUTIONS ARCHITECT Sexual Orientation Straight 06/16/2019 7: 10 AM CDT Last Filed Vital Signs Vital Sign Reading Time Taken Comments Blood Pressure 137/91 04/15/2023 11:06 AM NET SOLUTIONS ARCHITECT Pulse 59 04/15/2023 11:06 AM NET SOLUTIONS ARCHITECT Temperature 36.1 C (97 F) 03/18/2022 5:58 AM NET SOLUTIONS ARCHITECT Respiratory Rate 18 03/18/2022 5:58 AM NET SOLUTIONS ARCHITECT Oxygen Saturation 97% 03/18/2022 5:58 AM NET SOLUTIONS ARCHITECT Inhaled Oxygen Concentration - - Weight 88.9 kg (196 lb) 04/15/2023 11:06 AM NET SOLUTIONS ARCHITECT Height 167.6 cm (5' 6 ) 04/15/2023 11:06 AM NET SOLUTIONS ARCHITECT Body Mass Index 31.64 04/15/2023 11:06 AM NET SOLUTIONS ARCHITECT Plan of Treatment Not on file Medical Devices Implanted Type Area Injection Molding Operator Device Identifier Shelf Expiration Date Model / Serial / Lot [employer] [id number] Moberly 58mm Sector Hip Shell Acetabular Gription Sterile Latex Free - [id number] Implanted:Qty: 1 on 2019 by Kee Cruz MD at [facility] Left: Hip [employer] 12/08/2028 [id number] / / [id number] [employer] [id number] Moberly 58mm 36mm Hip Neutral Liner Acetabular Altrx Sterile Latex Free - [id number] Implanted:Qty: 1 on 2019 by Kee Cruz MD at [facility] Left: Hip [employer] 09/07/2024 [id number] / / [id number] [employer] [id number] Actis 105mm Collar Hip 5 High Offset Stem Femoral - [id number] Implanted:Qty: 1 on 2019 by Kee Cruz MD at [facility] Left: Hip [employer] 09/07/2029 [id number] / / [id number] [employer] [id number] Articul/Humphrey 36mm Cementless Hip +1.5mm 12/14 Taper Head Femoral Latex Free - [id number] Implanted:Qty: 1 on 2019 by Kee Cruz MD at [facility] Left: Hip [employer] 09/07/2024 [id number] / / [id number] [employer] [id number] Moberly 58mm Sector Hip Shell Acetabular Gription Sterile Latex Free - [id number] Implanted:Qty: 1 on 05/01/2020 by Kee Cruz MD at [facility] Right: Hip [employer] 03/10/2030 [id number] / / [id number] [employer] [id number] Moberly 58mm 36mm Hip Neutral Liner Acetabular Altrx Sterile Latex Free - [id number] Implanted:Qty: 1 on 05/01/2020 by Kee Cruz MD at [facility] Right: Hip [employer] 03/10/2025 [id number] / / [id number] [employer] [id number] Actis 105mm Collar Hip 5 High Offset Stem Femoral - [id number] Implanted:Qty: 1 on 05/01/2020 by Kee Cruz MD at [facility] Right: Hip [employer] 02/07/2030 [id number] / / [id number] [employer] [id number] Articul/Humphrey 36mm Cementless Hip +5mm 12/14 Taper Head Femoral Latex Free - [id number] Implanted:Qty: 1 on 05/01/2020 by Kee Cruz MD at [facility] Right: Hip [employer] 02/07/2025 [id number] / / [id number] Procedures Procedure Name Priority Date/Time Associated Diagnosis Comments CT ABDOMEN PELVIS WO CONTRAST ED 03/16/2022 7:05 AM NET SOLUTIONS ARCHITECT PSA SCREEN Routine 01/20/2021 9:34 AM NET SOLUTIONS ARCHITECT Prostate cancer screening COLONOSCOPY 04/15/2018 2:47 PM NET SOLUTIONS ARCHITECT HEPATITIS C ANTIBODY Routine 07/29/2017 9:42 AM CDT Need for hepatitis C screening test from Last 3 Months or Most Recently Relevant to Health Maintenance Results * CT Abdomen Pelvis WO Contrast (03/16/2022 7:05 AM NET SOLUTIONS ARCHITECT) Anatomical Region Laterality Modality Body N/A Computed Tomogra phy 03/16/2022 7:08 AM NET SOLUTIONS ARCHITECT Narrative 03/16/2022 7:25 AM NET SOLUTIONS ARCHITECT EXAM DESCRIPTION: CT ABDOMEN PELVIS WO CONTRAST REASON FOR STUDY: LLQ abdominal pain, diverticulitis suspected LLQ pain started early this morning. TECHNIQUE: CT scan of the abdomen and pelvis performed without intravenous and without oral contrast using helical scanning technique. Reconstructed coronal and sagittal MPR images reviewed. All images stored on PACS. Automated exposure control was used as a dose optimization technique for this examination. COMPARISON: None available FINDINGS: The sensitivity for detection of visceral lesions is diminished without the use of intravenous contrast. LOWER CHEST: No focal consolidation, mass or nodule in the visualized lung. No pleural or pericardial effusion. LIVER: Normal size and contour. No focal liver lesions seen. GALLBLADDER: Unremarkable. BILE DUCTS: No intrahepatic or extrahepatic biliary dilation. SPLEEN: Normal size. No focal lesions. PANCREAS: Normal parenchymal bulk and contour. No duct dilation or inflammation. ADRENALS: Normal. KIDNEYS/URINARY TRACT: Normal and symmetric renal size and contour. There are multiple nonobstructing stones in the left kidney, the largest measuring up to 4 mm in the mid to lower kidney. There is a nonobstructing 5 mm stone at the right upper pole. Additional punctate stones bilaterally. No obstructing stones. No hydroureteronephrosis. There are multiple right renal cysts. Urinary bladder is not well visualized secondary to beam hardening artifact from bilateral hip arthroplasties. GI: Stomach is unremarkable. There is a closed loop small bowel obstruction, involving a segment of mildly distended, but fluid-filled, isolated, and inflamed small bowel in the midline mid to lower abdomen. These loops appear distended, though not frankly dilated, but there is significant surrounding fat stranding. There are 2 transition points in very close proximity. 1 is seen just to the left of midline with sharp beaking of the bowel lumen (series 2, image 93, series 3, image 30 3-34). The 2nd is seen as a very short focal narrowing, with the proximal portion of the closed loop appearing relatively nondistended, and the upstream small bowel appearing mildly distended (series 2 images 83-89, series 3 images 22-28). These 2 transition points are seen within approximately 2-3 cm of each other. As of yet, there is not overt evidence of ischemia such as pneumatosis. The overall small bowel pattern is not notably obstructive, despite the presence of this closed loop obstruction. Normal appendix is seen inferior to the cecum. There is marked colonic diverticulosis, particularly in the descending and sigmoid colon, without evidence of acute diverticulitis. PERITONEUM: No ascites or free air. RETROPERITONEUM: No mass or adenopathy. REPRODUCTIVE: Poorly evaluated due to streak artifact from hip arthroplasties. VASCULATURE: No abdominal aortic aneurysm. MUSCULOSKELETAL: No acute fracture. No suspicious osseous lesion. Bone island in the left pelvis. 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 Bilateral total hip arthroplasties. OTHER: No other abnormality. IMPRESSION: 1. Acute, closed loop small-bowel obstruction in the midline mid to lower abdomen. Significant inflammatory changes already present, though no active evidence of ischemia. Urgent surgical consultation is recommended. 2. Bilateral nonobstructing renal stones. 3. Colonic diverticulosis without evidence of acute diverticulitis. These significant findings were reported by telephone to Dr. Cruz on 03/16/2022 at 7:15 a.m. . REFERENCE: Unless otherwise specified, no follow-up imaging is recommended for incidental renal and adrenal lesions per consensus recommendations based on imaging criteria. Further lab evaluation could be pursued based on clinical findings. Management of the Incidental Renal Mass on CT: A White Paper of the ACR Incidental Findings Committee. J Am Luciana Radiol. 2018 Mar;15(2):264-273. Management of Incidental Adrenal Masses: A White Paper of the ACR Incidental Findings Committee. J Am Luciana Radiol. 2017 Sep;14(8):5059-6192. THIS IS AN ELECTRONICALLY VERIFIED FINAL REPORT 03/16/2022 7:25 AM - Electronically signed by Bernabe Dickson M.D. BC: KUNAL Report ID: [id number] Reading Location: [id number] Procedure Note Bernabe Dickson MD - 03/16/2022 EXAM DESCRIPTION: CT ABDOMEN PELVIS WO CONTRAST REASON FOR STUDY: LLQ abdominal pain, diverticulitis suspected LLQ pain started early this morning. TECHNIQUE: CT scan of the abdomen and pelvis performed without intravenousand without oral contrast using helical scanning technique. Reconstructed coronal and sagittal MPR images reviewed. All images stored on PACS. Automated exposure control was used as a dose optimization technique forthis examination. COMPARISON: None available FINDINGS: The sensitivity for detection of visceral lesions is diminished withoutthe use of intravenous contrast. LOWER CHEST: No focal consolidation, mass or nodule in the visualizedlung. No pleural or pericardial effusion. LIVER: Normal size and contour. No focal liver lesions seen. GALLBLADDER: Unremarkable. BILE DUCTS: No intrahepatic or extrahepatic biliary dilation. SPLEEN: Normal size. No focal lesions. PANCREAS: Normal parenchymal bulk and contour. No duct dilation or inflammation. ADRENALS: Normal. KIDNEYS/URINARY TRACT: Normal and symmetric renal size and contour.There are multiple nonobstructing stones in the left kidney, the largestmeasuring up to 4 mm in the mid to lower kidney. There is a nonobstructing 5 mmstone at the right upper pole. Additional punctate stones bilaterally. No obstructing stones. No hydroureteronephrosis. There are multiple rightrenal cysts. Urinary bladder is not well visualized secondary to beamhardening artifact from bilateral hip arthroplasties. GI: Stomach is unremarkable. There is a closed loop small bowel obstruction, involving a segment of mildly distended, but fluid-filled, isolated, and inflamed small bowel in the midline mid to lower abdomen.These loops appear distended, though not frankly dilated, but there issignificant surrounding fat stranding. There are 2 transition points in very close proximity. 1 is seen just to the left of midline with sharp beaking ofthe bowel lumen (series 2, image 93, series 3, image 30 3-34). The 2nd isseen as a very short focal narrowing, with the proximal portion of the closed loop appearing relatively nondistended, and the upstream small bowel appearing mildly distended (series 2 images 83-89, series 3 images 22-28). These 2 transition points are seen within approximately 2-3 cm of each other. Asof yet, there is not overt evidence of ischemia such as pneumatosis. Theoverall small bowel pattern is not notably obstructive, despite the presence ofthis closed loop obstruction. Normal appendix is seen inferior to the cecum. There is marked colonic diverticulosis, particularly in the descending and sigmoid colon, without evidence of acute diverticulitis. PERITONEUM: No ascites or free air. RETROPERITONEUM: No mass or adenopathy. REPRODUCTIVE: Poorly evaluated due to streak artifact from hip arthroplasties. VASCULATURE: No abdominal aortic aneurysm. MUSCULOSKELETAL: No acute fracture. No suspicious osseous lesion. Bone island in the left pelvis. 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 Bilateral total hip arthroplasties. OTHER: No other abnormality. IMPRESSION: 1. Acute, closed loop small-bowel obstruction in the midline mid tolower abdomen. Significant inflammatory changes already present, though noactive evidence of ischemia. Urgent surgical consultation is recommended. 2. Bilateral nonobstructing renal stones. 3. Colonic diverticulosis without evidence of acute diverticulitis. These significant findings were reported by telephone to Dr. Brandon 03/16/2022 at 7:15 a.m. . REFERENCE: Unless otherwise specified, no follow-up imaging is recommendedfor incidental renal and adrenal lesions per consensus recommendations basedon imaging criteria. Further lab evaluation could be pursued based onclinical findings. Management of the Incidental Renal Mass on CT: A White Paper of the ACR Incidental Findings Committee. J Am Luciana Radiol. 2018 Mar;15(2):264-273. Management of Incidental Adrenal Masses: A White Paper of the ACRIncidental Findings Committee. J Am Luciana Radiol. 2017 Sep;14(8):2087-1370. THIS IS AN ELECTRONICALLY VERIFIED FINAL REPORT 03/16/2022 7:25 AM - Electronically signed by Bernabe Dickson M.D. BC: KUNAL Report ID: [id number] Reading Location: [place] [address] us Los Cruz MD IMG CT PROCEDURES F inal Result * PSA screen (01/20/2021 9:34 AM NET SOLUTIONS ARCHITECT) PSA-Total 0.91 <=5.40 ng/mL [facility] Comment: Interpretive Data AGE SEX REFERENCE INTERVAL 0 minutes-150 years Female None 0 minutes-49 years Male None 50-59 years Male 0-3.90 60-69 years Male 0-5.40 70-79 years Male 0-6.20 80-150 years Male 0-6.20 Current interpretive data last revised 2018. Testing performed by: [facility], [address] [place] [address]., [id number] Blood 01/20/2021 9:34 AM NET SOLUTIONS ARCHITECT 01/20/2021 2:26 PM NET SOLUTIONS ARCHITECT us Karen Diaz NP LAB BLOOD ORDERABLES Final Resul t [facility] [address] [facility] Department [place] [address] * COLONOSCOPY (04/15/2018 2:47 PM NET SOLUTIONS ARCHITECT) Anatomical Region Laterality Modality Other Narrative Procedure Note Nirav Euceda MD - 04/15/2018 2:47 PM CST [facility] Patient Name: Willie Katz Procedure Date: 04/15/2018 2:47 PM Date of : 1955 Admit Type: Outpatient Age: 62 Gender: Male Note Status: Finalized Attending MD: Nirav Euceda M.D. Procedure Date: 04/15/2018 Procedure: Colonoscopy Indications: Rectal bleeding Providers: Nirav Euceda M.D., Kee Shaffer M.D. (Anesthesia Staff), Jasmina Buchanan RN Referring MD: Seth Ridley.N.Petra Medicines: Monitored Anesthesia Care Complications: No immediate [...] 2 weeks. Procedure Code(s): --- Professional --- 36178, Colonoscopy, flexible; diagnostic, including collection of specimen(s) [...] in this report are preliminary and upon advertising inserter reviewmay be revised to meet current compliance [...] - GENERAL ORDERABLES Final Result [facility] [id number] Department [place] [address] from Last 3 Months or Most Recently Relevant to Health Maintenance Insurance [facility] MEDICARE [facility] MED[facility] Address: [facility] [address] [place] [address] [employer] MEDICARE GOLD Advance Directives For more information, please contact: [phone] * Full Code (Latest Code Status on File) Date Activated Date Inactivated Comments 03/16/2022 7:32 AM 03/18/2022 5:57 PM * Full Code Date Activated Date Inactivated Comments 2019 11:03 AM 11/28/2019 5:47 PM Care Teams Army Manager Relationship Specialty Start Date End Date Sumit Muñoz MD PCP - General Family Practice 03/16/22 Kee Cruz MD Surgeon Orthopedic Surgery 11/28/19
--- OUTSIDE RECORDS SUMMARY | 2024-04-28 11:18 | XMS_ITS | Clinical Summary ---
Author Organization [facility] Address [address] [facility] [address] [place] [address] Phone Care Team Providers Care Casino Cage Cashier Name Role Phone Kee Cruz MD Unavailable [phone] Sumit Muñoz MD Primary Care Provider [phone] Allergies Active Allergy Reactions Criticality Noted Date Comments Iodinated Contrast Media Hives Medium Reaction: Hives, Fgvvdsc-Yrj-Yct Reductase Inhibitors Other (See comments) Low 07/29/2017 [...] (07/16/2021): Added automatically from request for surgery [id number] Assessment & Plan (07/18/2021 9:04 AM CDT): [...] in 2018 he did PT at [facility] which helped, but now it is [...] in 2018 he did PT at [facility] which helped, but now it is [...] Zetia. Assessment & Plan (01/20/2021 9:36 AM SENIOR MECHANICAL DESIGNER): Labs ordered Continues Pravastatin and Zetia Assessment [...] 5mg. Assessment & Plan (01/20/2021 9:38 AM SENIOR MECHANICAL DESIGNER): Home BP's running 140-150/112 and patient has [...] in 2018 he did PT at [facility] which helped, but now it is back with a vengeance He uses heat which seems to help Resolved Problems Problem Noted Date Diagnosed Date Resolved Date Elevated lactic acid level 03/17/2022 0 03/17/2022 SBO (small bowel obstruction) 03/16/2022 03/17/2022 Rectal bleeding 04/06/2018 05/12/2019 Overview (04/06/2018): Added automatically from request for surgery [id number] History of colonoscopy with polypectomy 03/25/2018 05/12/2019 [...] Added automatica lly from request for surgery [id number] History of colonoscopy with polypectomy 03/25/2018 Hypertension [...] on file Legal Sex Male 8:53 AM SENIOR MECHANICAL DESIGNER Gender Identity Male 01/13/2021 7:04 AM SENIOR MECHANICAL DESIGNER Sexual Orientation Straight 06/16/2019 7: 10 AM CDT Obstetrics History Last Filed Vital Signs Vital Sign Reading Time Taken Comments Blood Pressure 137/91 04/15/2023 11:06 AM SENIOR MECHANICAL DESIGNER Pulse 59 04/15/2023 11:06 AM SENIOR MECHANICAL DESIGNER Temperature 36.1 C (97 F) 03/18/2022 5:58 AM SENIOR MECHANICAL DESIGNER Respiratory Rate 18 03/18/2022 5:58 AM SENIOR MECHANICAL DESIGNER Oxygen Saturation 97% 03/18/2022 5:58 AM SENIOR MECHANICAL DESIGNER Inhaled Oxygen Concentration - - Weight 88.9 kg (196 lb) 04/15/2023 11:06 AM SENIOR MECHANICAL DESIGNER Height 167.6 cm (5' 6 ) 04/15/2023 11:06 AM SENIOR MECHANICAL DESIGNER Body Mass Index 31.64 04/15/2023 11:06 AM SENIOR MECHANICAL DESIGNER Plan of Treatment Health Maintenance Due Date [...] 04/15/2018, 02/08/2015 Colon Cancer Screening-DNA Stool Discontinued 04/16/19 19, 02/08/2015 Colon Cancer Screening-FIT Discontinued 04/15/2018, Colon Cancer Screening-Sigmoidoscopy Discontinued 04/15/2018, 02/08/2015 Abdominal Aortic Aneurysm (A AA) Screen Completed 03/16/2022 Medical Devices Implanted Type Area Radiation Officer Device Identifier Shelf Expiration Date Model / Serial / Lot Depuy Orth[employer] [id number] Fairdale 58mm Sector Hip Shell Acetabular Gription Sterile Latex Free - [id number] Implanted:Qty: 1 on 2019 by Kee Cruz MD at [facility] Left: Hip [employer] 12/08/2028 [id number] / / [id number] Dep[employer] [id number] Fairdale 58mm 36mm Hip Neutral Liner Acetabular Altrx Sterile Latex Free - [id number] Implanted:Qty: 1 on 2019 by Kee Cruz MD at [facility] Left: Hip [employer] 09/07/2024 [id number] / / [id number] Depuy [employer] [id number] Actis 105mm Collar Hip 5 High Offset Stem Femoral - [id number] Implanted:Qty: 1 on 2019 by Kee Cruz MD at [facility] Left: Hip [employer] 09/07/2029 [id number] / / [id number] Dep[employer] [id number] Articul/Humphrey 36mm Cementless Hip +1.5mm 12/14 Taper Head Femoral Latex Free - [id number] Implanted:Qty: 1 on 2019 by Kee Cruz MD at [facility] Left: Hip [employer] 09/07/2024 [id number] / / [id number] Dep[employer] [id number] Fairdale 58mm Sector Hip Shell Acetabular Gription Sterile Latex Free - [id number] Implanted:Qty: 1 on 05/01/2020 by Kee Cruz MD at [facility] Right: Hip [employer] 03/10/2030 [id number] / / [id number] Dep[employer] [id number] Fairdale 58mm 36mm Hip Neutral Liner Acetabular Altrx Sterile Latex Free - [id number] Implanted:Qty: 1 on 05/01/2020 by Kee Cruz MD at [facility] Right: Hip [employer] 03/10/2025 [id number] / / [id number] Depuy [employer] [id number] Actis 105mm Collar Hip 5 High Offset Stem Femoral - [id number] Implanted:Qty: 1 on 05/01/2020 by Kee Cruz MD at [facility] Right: Hip [employer] 02/07/2030 [id number] / / [id number] [employer] [id number] Articul/Humphrey 36mm Cementless Hip +5mm 12/14 Taper Head Femoral Latex Free - [id number] Implanted:Qty: 1 on 05/01/2020 by Kee Cruz MD at [facility] Right: Hip [employer] 02/07/2025 [id number] / / [id number] Procedures Procedure Name Priority Date/Time Associated Diagnosis Comments CT ABDOMEN PELVIS WO CONTRAST ED 03/16/2022 7:05 AM SENIOR MECHANICAL DESIGNER PSA SCREEN Routine 01/20/2021 9:34 AM SENIOR MECHANICAL DESIGNER Prostate cancer screening COLONOSCOPY 04/15/2018 2:47 PM SENIOR MECHANICAL DESIGNER HEPATITIS C ANTIBODY Routine 07/29/2017 9:42 AM CDT Need for hepatitis C screening test from Last 3 Months or Most Recently Relevant to Health Maintenance Results * CT Abdomen Pelvis WO Contrast (03/16/2022 7:05 AM SENIOR MECHANICAL DESIGNER) Anatomical Region Laterality Modality Body N/A Computed Tomogra phy 03/16/2022 7:08 AM SENIOR MECHANICAL DESIGNER Narrative 03/16/2022 7:25 AM SENIOR MECHANICAL DESIGNER EXAM DESCRIPTION: CT ABDOMEN PELVIS WO CONTRAST [...] Findings Committee. J Am Luciana Radiol. 2017 Sep;14(8):7277-4690. THIS IS AN ELECTRONICALLY VERIFIED FINAL REPORT 03/16/2022 7:25 AM - Electronically signed by Bernabe Dickson M.D. BC: KUNAL Report ID: [id number] Reading Location: [id number] Procedure Note Bernabe Dickson MD - 03/16/2022 [...] Findings Committee. J Am Luciana Radiol. 2017 Sep;14(8):0901-4614. THIS IS AN ELECTRONICALLY VERIFIED FINAL REPORT 03/16/2022 7:25 AM - Electronically signed by Bernabe Dickson M.D. BC: KUNAL Report ID: [id number] Reading Location: [place] [address] us Los Cruz MD IMG CT PROCEDURES F inal Result * PSA screen (01/20/2021 9:34 AM SENIOR MECHANICAL DESIGNER) PSA-Total 0.91 <=5.40 ng/mL [facility] ([place]) Comment: Interpretive Data AGE SEX REFERENCE INTERVAL 0 minutes-150 years Female None 0 minutes-49 years Male None 50-59 years Male 0-3.90 60-69 years Male 0-5.40 70-79 years Male 0-6.20 80-150 years Male 0-6.20 Current interpretive data last revised 2018. Testing performed by: [facility], [address] [place] [address]., [id number] Blood 01/20/2021 9:34 AM SENIOR MECHANICAL DESIGNER 01/20/2021 2:26 PM SENIOR MECHANICAL DESIGNER us Karen Diaz LINOLEUM INSTALLER LAB BLOOD ORDERABLES Final Resul t [facility] ([place]) [address] [employer] [facility] [place] [place] [address] * COLONOSCOPY (04/15/2018 2:47 PM SENIOR MECHANICAL DESIGNER) Anatomical Region Laterality Modality Other Narrative Procedure Note Nirav Euceda MD - 04/15/2018 2:47 PM CST [facility] Endoscopy Lab Patient Name: Willie Katz Procedure [...] 2 weeks. Procedure Code(s): --- Professional --- 75034, Colonoscopy, flexible; diagnostic, including collection of specimen(s) by brushing or washing,when performed (separate procedure) Diagnosis Code(s): --- Professional --- K64.8, Other hemorrhoids K64.4, Residual hemorrhoidal skin tags K62.5, Hemorrhage of anus and rectum K57.30, Diverticulosis of large intestine without perforation or abscess without bleeding CPT copyright 2017 [employer]. All rights reserved. The codes documented in this report are preliminary and upon senior infrastructure architect reviewmay be revised to meet current compliance [...] 07/29/2017 10:16 AM CDT Narrative [facility] CARVER - 07/29/2017 11:14 AM CDT Doug Boudreaux NP LAB MICROBIOLOGY - GENERAL ORDERABLES Final Result [facility] [address] [place] [place] [address] from Last 3 Months or Most Recently Relevant to Health Maintenance Insurance UHC MEDICARE ADVANTAGE AETNA MEDICARE GOLD Advance Directives For more information, please contact: [phone] * Full Code (Latest Code Status on File) Date Activated Date Inactivated Comments 03/16/2022 7:32 AM 03/18/2022 5:57 PM * Full Code Date Activated Date Inactivated Comments 2019 11:03 AM 11/28/2019 5:47 PM Care Teams Casino Cage Cashier Relationship Specialty Start Date End Date Sumit Muñoz MD PCP - General Family Practice 03/16/22 Kee Cruz MD Surgeon Orthopedic Surgery 11/28/19
--- OUTSIDE RECORDS SUMMARY | 2024-04-28 11:18 | XMS_ITS | Clinical Summary ---
Author Organization [facility] Address [address] [place] [address] Phone Care Team Providers Care Pick And Shovel Worker Name Role Phone Unavailable Unavailable Unavailable Reason [...]
[2024-04-28 11:23] LABS: CRP < 0.5 mg/dL (<1.0)
[2024-04-28 11:54] LABS: Iron 133 ug/dL (49-181)
[2024-04-28 12:07] LABS: Percent Iron Saturation 42 % (20-50)
[2024-04-28 14:25] LABS: Erythrocyte Sedimentation Rate 6 mm/hr (0-20)
== END 2024-04-28 10:11 | disposition home or self-care (01) ==
PROVIDERS: PCP Family Medicine; Visit Provider Family Medicine
DX: D69.6 Thrombocytopenia, unspecified (principal); Z79.899 Other long term (current) drug therapy
CPT/HCPCS: 36415; 82728; 83540; 83550; 85025; 85652; 86140

== ENCOUNTER 2024-08-24 07:31 | Outpatient (CLI) | payer MEDICARE, SELFPAY ==
--- OUTSIDE RECORDS SUMMARY | 2024-08-24 07:34 | XMS_ITS | Encounter Summary ---
Author Organization [facility] Address [address] [place] [address] Care Team Providers Care Storage Battery Tester Name Role Phone Marsha Garcia JAVA INTEGRATION DEVELOPER Primary Care Provider Kee Cruz MD Unavailable [phone] Karen Diaz JAVA INTEGRATION DEVELOPER Primary Care Provider [phone] Marsha Garcia JAVA INTEGRATION DEVELOPER Primary Care Provider [phone] Karen Diaz NP Unavailable Karen Diaz NP Primary Care Provider [phone] Sumit Muñoz MD Primary Care Provider [phone] Reason for Visit * Reason Onset Date Comments Scheduling Appointments 09/04/2019 Called f or left hip injection appointment reminder Encounter Details Date Type Department Care Team (Late st Contact Info) Description 09/04/2019 Telephone [facility] [address] [place] [id number] Norma Suazo RT Scheduling Appointments (Called for [...] on file Legal Sex Male 8:53 AM DOPE WORKER Gender Identity Male 01/13/2021 7:04 AM DOPE WORKER Sexual Orientation Straight 06/16/2019 7: 10 AM CDT documented as of this encounter Plan of Treatment Not on file documented as of this encounter Visit Diagnoses Not on filedocumented in this encounter Care Teams Storage Battery Tester Relationship Specialty Start Date End Date Marsha [...]
--- OUTSIDE RECORDS SUMMARY | 2024-08-24 07:34 | XMS_ITS | Clinical Summary ---
Author Organization [facility] Address [address] [facility] [address] [place] [address] Phone Care Team Providers Care Ob Scrub Tech Name Role Phone Kee Cruz MD Unavailable [phone] Sumit Muñoz MD Primary Care Provider [phone] Allergies Active Allergy Reactions Criticality Noted Date Comments Iodinated Contrast Media Hives Medium Reaction: Hives, Ertbstm-Igj-Ihl Reductase Inhibitors Other (See comments) Low 07/29/2017 [...] (07/16/2021): Added automatically from request for surgery [id number] Assessment & Plan (07/18/2021 9:04 AM CDT): [...] naproxen, in 2018 he did PT at [facility] which helped, but now it is [...] naproxen, in 2018 he did PT at [facility] which helped, but now it is [...] Zetia. Assessment & Plan (01/20/2021 9:36 AM PUBLIC TRANSIT SPECIALIST): Labs ordered Continues Pravastatin and Zetia Assessment [...] 5mg. Assessment & Plan (01/20/2021 9:38 AM PUBLIC TRANSIT SPECIALIST): Home BP's running 140-150/112 and patient has [...] naproxen, in 2018 he did PT at [facility] which helped, but now it is back with a vengeance He uses heat which seems to help Resolved Problems Problem Noted Date Diagnosed Date Resolved Date Elevated lactic acid level 03/17/2022 0 03/17/2022 SBO (small bowel obstruction) 03/16/2022 03/17/2022 Rectal bleeding 04/06/2018 05/12/2019 Overview (04/06/2018): Added automatically from request for surgery [id number] History of colonoscopy with polypectomy 03/25/2018 05/12/2019 [...] Added automatica lly from request for surgery [id number] History of colonoscopy with polypectomy 03/25/2018 Hypertension [...] on file Legal Sex Male 8:53 AM PUBLIC TRANSIT SPECIALIST Gender Identity Male 01/13/2021 7:04 AM PUBLIC TRANSIT SPECIALIST Sexual Orientation Straight 06/16/2019 7: 10 AM CDT Obstetrics History Last Filed Vital Signs Vital Sign Reading Time Taken Comments Blood Pressure 137/91 04/15/2023 11:06 AM PUBLIC TRANSIT SPECIALIST Pulse 59 04/15/2023 11:06 AM PUBLIC TRANSIT SPECIALIST Temperature 36.1 C (97 F) 03/18/2022 5:58 AM PUBLIC TRANSIT SPECIALIST Respiratory Rate 18 03/18/2022 5:58 AM PUBLIC TRANSIT SPECIALIST Oxygen Saturation 97% 03/18/2022 5:58 AM PUBLIC TRANSIT SPECIALIST Inhaled Oxygen Concentration - - Weight 88.9 kg (196 lb) 04/15/2023 11:06 AM PUBLIC TRANSIT SPECIALIST Height 167.6 cm (5' 6) 04/15/2023 11:06 AM PUBLIC TRANSIT SPECIALIST Body Mass Index 31.64 04/15/2023 11:06 AM PUBLIC TRANSIT SPECIALIST Plan of Treatment Health Maintenance Due Date [...] 2023 01/20/2021, 06/05/2020, 05/08/2020 Influenza Vaccine (#1) 2024 , 01/20/2021, 01/31/2020, Additional history exists DTaP/Tdap/Td Vaccine (3 - Td or Tdap) 01/08/2026 01/09/2016, 06/03/2005 Hepatitis C Screening Completed 07/29/2017 Colon Cancer Screening-CT Colonography Discontinued 04/15/2018, 02/08/2015 Colon Cancer Screening-DNA Stool Discontinued 04/16/19 19, 02/08/2015 Colon Cancer Screening-FIT Discontinued 04/15/2018, Colon Cancer Screening-Sigmoidoscopy Discontinued 04/15/2018, 02/08/2015 Abdominal Aortic Aneurysm (A AA) Screen Completed 03/16/2022 Medical Devices Implanted Type Area Custodial Aide Device Identifier Shelf Expiration Date Model / Serial / Lot Depuy Orthopa[employer] Inc [id number] Pony 58mm Sector Hip Shell Acetabular Gription Sterile Latex Free - [id number] Implanted:Qty: 1 on 2019 by Kee Cruz MD at [facility] Left: Hip [employer]uy [employer] 12/08/2028 [id number] / / [id number] Depuy [employer] [id number] Pony 58mm 36mm Hip Neutral Liner Acetabular Altrx Sterile Latex Free - [id number] Implanted:Qty: 1 on 2019 by Kee Cruz MD at [facility] Left: Hip [employer] 09/07/2024 [id number] / / [id number] [employer] [id number] Actis 105mm Collar Hip 5 High Offset Stem Femoral - [id number] Implanted:Qty: 1 on 2019 by Kee Cruz MD at [facility] Left: Hip [employer]uy [employer] 09/07/2029 [id number] / / [id number] Depuy [employer] [id number] Articul/Humphrey 36mm Cementless Hip +1.5mm 12/14 Taper Head Femoral Latex Free - [id number] Implanted:Qty: 1 on 2019 by Kee Cruz MD at [facility] Left: Hip [employer] 09/07/2024 [id number] / / [id number] Dep[employer] [id number] Pony 58mm Sector Hip Shell Acetabular Gription Sterile Latex Free - [id number] Implanted:Qty: 1 on 05/01/2020 by Kee Cruz MD at [facility] Right: Hip [employer] 03/10/2030 [id number] / / [id number] Depuy [employer] [id number] Pony 58mm 36mm Hip Neutral Liner Acetabular Altrx Sterile Latex Free - [id number] Implanted:Qty: 1 on 05/01/2020 by Kee Cruz MD at [facility] Right: Hip [employer] 03/10/2025 [id number] / / [id number] Depuy [employer] [id number] Actis 105mm Collar Hip 5 High Offset Stem Femoral - [id number] Implanted:Qty: 1 on 05/01/2020 by Kee Cruz MD at [facility] Right: Hip [employer] 02/07/2030 [id number] / / [id number] Depuy [employer] [id number] Articul/Humphrey 36mm Cementless Hip +5mm 12/14 Taper Head Femoral Latex Free - [id number] Implanted:Qty: 1 on 05/01/2020 by Kee Cruz MD at [facility] Right: Hip [employer] 02/07/2025 [id number] / / [id number] Procedures Procedure Name Priority Date/Time Associated Diagnosis Comments CT ABDOMEN PELVIS WO CONTRAST ED 03/16/2022 7:05 AM PUBLIC TRANSIT SPECIALIST PSA SCREEN Routine 01/20/2021 9:34 AM PUBLIC TRANSIT SPECIALIST Prostate cancer screening COLONOSCOPY 04/15/2018 2:47 PM PUBLIC TRANSIT SPECIALIST HEPATITIS C ANTIBODY Routine 07/29/2017 9:42 AM CDT Need for hepatitis C screening test from Last 3 Months or Most Recently Relevant to Health Maintenance Results * CT Abdomen Pelvis WO Contrast (03/16/2022 7:05 AM PUBLIC TRANSIT SPECIALIST) Anatomical Region Laterality Modality Body N/A Computed Tomogra phy 03/16/2022 7:08 AM PUBLIC TRANSIT SPECIALIST Narrative 03/16/2022 7:25 AM PUBLIC TRANSIT SPECIALIST EXAM DESCRIPTION: CT ABDOMEN PELVIS WO CONTRAST [...] Findings Committee. J Am Luciana Radiol. 2017 Sep;14(8):4826-2855. THIS IS AN ELECTRONICALLY VERIFIED FINAL REPORT 03/16/2022 7:25 AM - Electronically signed by Bernabe Dickosn M.D. BC: KUNAL Report ID: [id number] Reading Location: [id number] Procedure Note Bernabe Dickson MD - 03/16/2022 [...] Findings Committee. J Am Luciana Radiol. 2017 Sep;14(8):6214-0050. THIS IS AN ELECTRONICALLY VERIFIED FINAL REPORT 03/16/2022 7:25 AM - Electronically signed by Bernabe Dickson M.D. BC: KUNAL Report ID: [id number] Reading Location: [place] [address] us Los Cruz MD IMG CT PROCEDURES F inal Result * PSA screen (01/20/2021 9:34 AM PUBLIC TRANSIT SPECIALIST) PSA-Total 0.91 <=5.40 ng/mL [facility] ([place]) Comment: Interpretive Data AGE SEX REFERENCE INTERVAL 0 minutes-150 years Female None 0 minutes-49 years Male None 50-59 years Male 0-3.90 60-69 years Male 0-5.40 70-79 years Male 0-6.20 80-150 years Male 0-6.20 Current interpretive data last revised 2018. Testing performed by: , [address] [place] [address]., [id number] Blood 01/20/2021 9:34 AM PUBLIC TRANSIT SPECIALIST 01/20/2021 2:26 PM PUBLIC TRANSIT SPECIALIST us Karen Diaz RN PEDIATRIC LAB BLOOD ORDERABLES Final Resul t [facility] ([place]) [address] [facility] Department of [employer] [place] [address] * COLONOSCOPY (04/15/2018 2:47 PM PUBLIC TRANSIT SPECIALIST) Anatomical Region Laterality Modality Other Narrative Procedure Note Nirav Euceda MD - 04/15/2018 2:47 PM CST [facility] Endoscopy Lab Patient Name: Willie Katz Procedure [...] 2 weeks. Procedure Code(s): --- Professional --- 65052, Colonoscopy, flexible; diagnostic, including collection of specimen(s) by brushing or washing,when performed (separate procedure) Diagnosis Code(s): --- Professional --- K64.8, Other hemorrhoids K64.4, Residual hemorrhoidal skin tags K62.5, Hemorrhage of anus and rectum K57.30, Diverticulosis of large intestine without perforation or abscess without bleeding CPT copyright 2017 [employer]. All rights reserved. The codes documented in this report are preliminary and upon electronic induction hardener reviewmay be revised to meet current compliance [...] - GENERAL ORDERABLES Final Result [facility] [id number] Department [place] [employer] [address] from Last 3 Months or Most Recently Relevant to Health Maintenance Insurance UHC MEDICARE ADVANTAGE AETNA MEDICARE [facility] Address: [facility] [id number] [place] [address] Advance Directives For more information, please contact: [phone] * Full Code (Latest Code Status on File) Date Activated Date Inactivated Comments 03/16/2022 7:32 AM 03/18/2022 5:57 PM * Full Code Date Activated Date Inactivated Comments 2019 11:03 AM 11/28/2019 5:47 PM Care Teams Ob Scrub Tech Relationship Specialty Start Date End Date Sumit Muñoz MD PCP - General Family Practice 03/16/22 Kee Cruz MD Surgeon Orthopedic Surgery 11/28/19
--- OUTSIDE RECORDS SUMMARY | 2024-08-24 07:34 | XMS_ITS | Referral Summary ---
Author Organization [facility] Address [address] [facility] [address] [place] [address] Phone Care Team Providers Care Poll Clerk Name Role Phone Kee Cruz MD Unavailable [phone] Sumit Muñoz MD Primary Care Provider [phone] Allergies Active Allergy Reactions Criticality Noted Date Comments Iodinated Contrast Media Hives Medium Reaction: Hives, Xukjlov-Zzd-Gfw Reductase Inhibitors Other (See comments) Low 07/29/2017 [...] (07/16/2021): Added automatically from request for surgery [id number] Assessment & Plan (07/18/2021 9:04 AM CDT): [...] naproxen, in 2018 he did PT at [facility] which helped, but now it is back [...] naproxen, in 2018 he did PT at [facility] which helped, but now it is back [...] Zetia. Assessment & Plan (01/20/2021 9:36 AM SPECIAL WARFARE OPERATOR): Labs ordered Continues Pravastatin and Zetia Assessment [...] 5mg. Assessment & Plan (01/20/2021 9:38 AM SPECIAL WARFARE OPERATOR): Home BP's running 140-150/112 and patient has [...] naproxen, in 2018 he did PT at [facility] which helped, but now it is back with a vengeance He uses heat which seems to help Resolved Problems Problem Noted Date Diagnosed Date Resolved Date Elevated lactic acid level 03/17/2022 0 03/17/2022 SBO (small bowel obstruction) 03/16/2022 03/17/2022 Rectal bleeding 04/06/2018 05/12/2019 Overview (04/06/2018): Added automatically from request for surgery [id number] History of colonoscopy with polypectomy 03/25/2018 05/12/2019 [...] on file Legal Sex Male 8:53 AM SPECIAL WARFARE OPERATOR Gender Identity Male 01/13/2021 7:04 AM SPECIAL WARFARE OPERATOR Sexual Orientation Straight 06/16/2019 7: 10 AM CDT Last Filed Vital Signs Vital Sign Reading Time Taken Comments Blood Pressure 137/91 04/15/2023 11:06 AM SPECIAL WARFARE OPERATOR Pulse 59 04/15/2023 11:06 AM SPECIAL WARFARE OPERATOR Temperature 36.1 C (97 F) 03/18/2022 5:58 AM SPECIAL WARFARE OPERATOR Respiratory Rate 18 03/18/2022 5:58 AM SPECIAL WARFARE OPERATOR Oxygen Saturation 97% 03/18/2022 5:58 AM SPECIAL WARFARE OPERATOR Inhaled Oxygen Concentration - - Weight 88.9 kg (196 lb) 04/15/2023 11:06 AM SPECIAL WARFARE OPERATOR Height 167.6 cm (5' 6) 04/15/2023 11:06 AM SPECIAL WARFARE OPERATOR Body Mass Index 31.64 04/15/2023 11:06 AM SPECIAL WARFARE OPERATOR Plan of Treatment Not on file Medical Devices Implanted Type Area Bookkeepers Supervisor Device Identifier Shelf Expiration Date Model / Serial / Lot Depuy Orthopaed[employer] Inc [id number] [place] 58mm Sector Hip Shell Acetabular Gription Sterile Latex Free - [id number] Implanted:Qty: 1 on 2019 by Kee Cruz MD at [facility] Left: Hip [employer]uy [employer] 12/08/2028 [id number] / / [id number] Depuy [employer] [id number] [place] 58mm 36mm Hip Neutral Liner Acetabular Altrx Sterile Latex Free - [id number] Implanted:Qty: 1 on 2019 by Kee Cruz MD at [facility] Left: Hip [employer]uy [employer] 09/07/2024 [id number] / / [id number] Depuy [employer] [id number] Actis 105mm Collar Hip 5 High Offset Stem Femoral - [id number] Implanted:Qty: 1 on 2019 by Kee Cruz MD at [facility] Left: Hip [employer]uy [employer] 09/07/2029 [id number] / / [id number] Depuy [employer]opa[employer] [id number] Articul/Humphrey 36mm Cementless Hip +1.5mm 12/14 Taper Head Femoral Latex Free - [id number] Implanted:Qty: 1 on 2019 by Kee Cruz MD at [facility] Left: Hip [employer]uy [employer] 09/07/2024 [id number] / / [id number] Depuy [employer] [id number] [place] 58mm Sector Hip Shell Acetabular Gription Sterile Latex Free - [id number] Implanted:Qty: 1 on 05/01/2020 by Kee Cruz MD at [facility] Right: Hip [employer] 03/10/2030 [id number] / / [id number] Depuy [employer] [id number] [place] 58mm 36mm Hip Neutral Liner Acetabular Altrx Sterile Latex Free - [id number] Implanted:Qty: 1 on 05/01/2020 by Kee Cruz MD at [facility] Right: Hip [employer]uy [employer] 03/10/2025 [id number] / / [id number] Depuy [employer] Inc [id number] Actis 105mm Collar Hip 5 High Offset Stem Femoral - [id number] Implanted:Qty: 1 on 05/01/2020 by Kee Cruz MD at [facility] Right: Hip [employer]uy [employer] 02/07/2030 [id number] / / [id number] Depuy [employer] [id number] Articul/Humphrey 36mm Cementless Hip +5mm 12/14 Taper Head Femoral Latex Free - [id number] Implanted:Qty: 1 on 05/01/2020 by Kee Cruz MD at [facility] Right: Hip [employer]uy [employer] 02/07/2025 [id number] / / [id number] Procedures Procedure Name Priority Date/Time Associated Diagnosis Comments CT ABDOMEN PELVIS WO CONTRAST ED 03/16/2022 7:05 AM SPECIAL WARFARE OPERATOR PSA SCREEN Routine 01/20/2021 9:34 AM SPECIAL WARFARE OPERATOR Prostate cancer screening COLONOSCOPY 04/15/2018 2:47 PM SPECIAL WARFARE OPERATOR HEPATITIS C ANTIBODY Routine 07/29/2017 9:42 AM CDT Need for hepatitis C screening test from Last 3 Months or Most Recently Relevant to Health Maintenance Results * CT Abdomen Pelvis WO Contrast (03/16/2022 7:05 AM SPECIAL WARFARE OPERATOR) Anatomical Region Laterality Modality Body N/A Computed Tomogra phy 03/16/2022 7:08 AM SPECIAL WARFARE OPERATOR Narrative 03/16/2022 7:25 AM SPECIAL WARFARE OPERATOR EXAM DESCRIPTION: CT ABDOMEN PELVIS WO CONTRAST [...] Findings Committee. J Am Luciana Radiol. 2017 Sep;14(8):7914-1609. THIS IS AN ELECTRONICALLY VERIFIED FINAL REPORT 03/16/2022 7:25 AM - Electronically signed by Bernabe Dickson M.D. BC: KUNAL Report ID: [id number] Reading Location: [id number] Procedure Note Bernabe Dickson MD - 03/16/2022 [...] Findings Committee. J Am Luciana Radiol. 2017 Sep;14(8):4229-3760. THIS IS AN ELECTRONICALLY VERIFIED FINAL REPORT 03/16/2022 7:25 AM - Electronically signed by Bernabe Dickson M.D. BC: KUNAL Report ID: [id number] Reading Location: [place] [address] us Los Cruz MD IMG CT PROCEDURES F inal Result * PSA screen (01/20/2021 9:34 AM SPECIAL WARFARE OPERATOR) PSA-Total 0.91 <=5.40 ng/mL [facility] ([place]) Comment: Interpretive Data AGE SEX REFERENCE INTERVAL 0 minutes-150 years Female None 0 minutes-49 years Male None 50-59 years Male 0-3.90 60-69 years Male 0-5.40 70-79 years Male 0-6.20 80-150 years Male 0-6.20 Current interpretive data last revised 2018. Testing performed by: [facility], [address] [place] [address]., [address] Blood 01/20/2021 9:34 AM SPECIAL WARFARE OPERATOR 01/20/2021 2:26 PM SPECIAL WARFARE OPERATOR us Karen Diaz NP LAB BLOOD ORDERABLES Final Resul t [facility] ([place]) [address] [facility] Department [place] [address] * COLONOSCOPY (04/15/2018 2:47 PM SPECIAL WARFARE OPERATOR) Anatomical Region Laterality Modality Other Narrative Procedure Note Nirav Euceda MD - 04/15/2018 2:[address] [facility] Endoscopy Lab Patient Name: Willie Katz Procedure Date: 04/15/2018 2:47 PM Date of : 1955 Admit Type: Outpatient Age: 62 Gender: Male Note Status: Finalized Attending MD: Nirav Euceda M.D. Procedure Date: 04/15/2018 Procedure: Colonoscopy Indications: Rectal bleeding Providers: Nriav Euceda M.D., Kee Shaffer M.D. (Anesthesia Staff), [...] 2 weeks. Procedure Code(s): --- Professional --- 28816, Colonoscopy, flexible; diagnostic, including collection of specimen(s) by brushing or washing,when performed (separate procedure) Diagnosis Code(s): --- Professional --- K64.8, Other hemorrhoids K64.4, Residual hemorrhoidal skin tags K62.5, Hemorrhage of anus and rectum K57.30, Diverticulosis of large intestine without perforation or abscess without bleeding CPT copyright 2017 [employer]. All rights reserved. The codes documented in this report are preliminary and upon rotoprinter reviewmay be revised to meet current compliance [...] - GENERAL ORDERABLES Final Result [facility] [id number] Department [place] [address] from Last 3 Months or Most Recently Relevant to Health Maintenance Insurance [facility]IC[facility] ADVANTAGE [facility] Address: [facility] [address] [place] [address] AETNA MEDICARE GOLD Advance Directives For more information, please contact: [phone] * Full Code (Latest Code Status on File) Date Activated Date Inactivated Comments 03/16/2022 7:32 AM 03/18/2022 5:57 PM * Full Code Date Activated Date Inactivated Comments 2019 11:03 AM 11/28/2019 5:47 PM Care Teams Poll Clerk Relationship Specialty Start Date End Date Sumit Muñoz MD PCP - General Family Practice 03/16/22 Kee Cruz MD Surgeon Orthopedic Surgery 11/28/19
[2024-08-24 07:55] LABS: Hematocrit 48.8 % (42.0-52.0); Hemoglobin 15.5 g/dL (14.0-18.0); Mean Corpuscular HGB Conc 31.8 g/dl (32-36); Mean Corpuscular Hemoglobin 30.0 pg (26-34); Mean Corpuscular Volume 94.4 fl (80-100); Platelet Count Result 140 k/mm3 (150-375); Red Blood Count 5.17 M/mm3 (4.6-6.20); White Blood Count 5.0 K/mm3 (4.5-10.0)
[2024-08-24 08:20] LABS: Alanine Aminotransferase 23 U/L (6-50); Albumin Level 4.3 g/dL (3.5-5.1); Alkaline Phosphatase 70 U/L (38-126); Anion Gap 7 mmol/L (4-12); Aspartate Amino Transferase 29 U/L (17-59); Bilirubin,Total 0.9 mg/dL (0.2-1.3); Blood Urea Nitrogen 18 mg/dL (9-20); Calcium 9.1 mg/dL (8.4-10.2); Carbon Dioxide 25 mmol/L (22-30); Chloride 104 mmol/L (98-107); Cholesterol 245 mg/dL (0-200); Estimated Glomerular Filt Rate > 60; Glucose 101 mg/dL (65-110); HDL Direct 58 mg/dL; Potassium 4.6 mmol/L (3.4-5.0); Sodium 136 mmol/L (137-145); Total Protein 6.9 g/dL (6.3-8.2); Triglycerides 80 mg/dL (<150)
[2024-08-24 09:22] LABS: Vitamin B12 714.0 pg/mL (239-931)
== END 2024-08-24 07:32 | disposition home or self-care (01) ==
PROVIDERS: PCP Family Medicine; Visit Provider Family Medicine
DX: D69.6 Thrombocytopenia, unspecified (principal); I10 Essential (primary) hypertension; E78.5 Hyperlipidemia, unspecified; Z79.899 Other long term (current) drug therapy
CPT/HCPCS: 36415; 80053; 80061; 82306; 82607; 85027

== ENCOUNTER 2025-01-09 07:59 | Outpatient (CLI) | payer MEDICARE, SELFPAY ==
--- NOTE | ~2025-01-09 | XR_ITS ---
EXAMINATION: XR chest 2V 01/09/2025 08:19 INDICATION: Chronic cough PROCEDURE: 2 view chest COMPARISON: No prior studies for comparison. FINDINGS: The lungs are clear. The cardiomediastinal silhouette is within normal limits. There are no pleural effusions. There is no pneumothorax suspected. IMPRESSION: 1: NO ACUTE CARDIOPULMONARY DISEASE. Reviewed, dictated and finalized at location I. ACE ERECTOR
== END 2025-01-09 08:00 | disposition home or self-care (01) ==
LOC: MICIMG 08:00
PROVIDERS: PCP Family Medicine; Visit Provider Family Medicine
DX: R05.3 Chronic cough (principal)
CPT/HCPCS: 71046

== ENCOUNTER 2025-01-31 08:30 | Outpatient (CLI) | payer MEDICARE, SELFPAY ==
--- OUTSIDE RECORDS SUMMARY | 2025-01-31 08:34 | XMS_ITS | Encounter Summary ---
Author Organization [facility] Healthcare Address [address] [place] [address] Care Team Providers Care Public Transit Trolley Driver Name Role Phone Marsha Garcia NP Primary Care Provider Kee Cruz MD Unavailable [phone] Karen Diaz [employer] Primary Care Provider [phone] Marsha Garcia NP Primary Care Provider [phone] Karen Diaz NP Unavailable Karen Diaz NP Primary Care Provider [phone] Sumit Muñoz MD Primary Care Provider [phone] Reason for Visit * Reason Onset Date Comments Scheduling Appointments 09/04/2019 Called f or left hip injection appointment reminder Encounter Details Date Type Department Care Team (Late st Contact Info) Description 09/04/2019 Telephone [facility] [address] [place] [id number] Norma Suazo RT Scheduling Appointments (Called for [...] on file Legal Sex Male 8:53 AM FOCUSING MACHINE OPERATOR Gender Identity Male 01/13/2021 7:04 AM FOCUSING MACHINE OPERATOR Sexual Orientation Straight 06/16/2019 7: 10 AM CDT documented as of this encounter Plan of Treatment Not on file documented as of this encounter Visit Diagnoses Not on filedocumented in this encounter Care Teams Public Transit Trolley Driver Relationship Specialty Start Date End Date Marsha Garcia NP PCP - General Family Medicine 05/12/19 01/31/20 Karen Diaz NP PCP - General 02/01/20 02/15/20 Marsha Garcia NP PCP - General Family Medicine 02/16/20 01/19/21 Karen Diaz NP PCP - General Family Medicine 01/20/21 03/15/22 Sumit Muñoz MD PCP - General Family Practice 03/16/22 Kee Cruz MD Surgeon Orthopedic Surgery 11/28/19 Karen Diaz [employer] Nurse Practitioner Family Medicine 02/16/20 03/15/22 documented as of this encounter
--- OUTSIDE RECORDS SUMMARY | 2025-01-31 08:34 | XMS_ITS | Clinical Summary ---
Author Organization [facility] Address [address] [facility] [address] [place] [address] Phone Care Team Providers Care Heavy Equipment Operator/Paver Name Role Phone Kee Cruz MD Unavailable [phone] Sumit Muñoz MD Primary Care Provider [phone] Allergies Active Allergy Reactions Criticality Noted Date Comments Iodinated Contrast Media Hives Medium Reaction: Hives, Ngoelur-Qqd-Xlf Reductase Inhibitors Other (See comments) Low 07/29/2017 [...] (07/16/2021): Added automatically from request for surgery [id number] Assessment & Plan (07/18/2021 9:04 AM CDT): [...] naproxen, in 2018 he did PT at [facility] which helped, but now it [...] naproxen, in 2018 he did PT at [facility] which helped, but now it [...] Zetia. Assessment & Plan (01/20/2021 9:36 AM EMOTIONAL DISABILITIES TEACHER): Labs ordered Continues Pravastatin and Zetia Assessment [...] 5mg. Assessment & Plan (01/20/2021 9:38 AM EMOTIONAL DISABILITIES TEACHER): Home BP's running 140-150/112 and patient has [...] naproxen, in 2018 he did PT at [facility] which helped, but now it is back with a vengeance He uses heat which seems to help Resolved Problems Problem Noted Date Diagnosed Date Resolved Date Elevated lactic acid level 03/17/2022 0 03/17/2022 SBO (small bowel obstruction) 03/16/2022 03/17/2022 Rectal bleeding 04/06/2018 05/12/2019 Overview (04/06/2018): Added automatically from request for surgery [id number] History of colonoscopy with polypectomy 03/25/2018 05/12/2019 [...] Added automatica lly from request for surgery [id number] History of colonoscopy with polypectomy 03/25/2018 Hypertension [...] on file Legal Sex Male 8:53 AM EMOTIONAL DISABILITIES TEACHER Gender Identity Male 01/13/2021 7:04 AM EMOTIONAL DISABILITIES TEACHER Sexual Orientation Straight 06/16/2019 7: 10 AM CDT Last Filed Vital Signs Vital Sign Reading Time Taken Comments Blood Pressure 137/91 04/15/2023 11:06 AM EMOTIONAL DISABILITIES TEACHER Pulse 59 04/15/2023 11:06 AM EMOTIONAL DISABILITIES TEACHER Temperature 36.1 C (97 F) 03/18/2022 5:58 AM EMOTIONAL DISABILITIES TEACHER Respiratory Rate 18 03/18/2022 5:58 AM EMOTIONAL DISABILITIES TEACHER Oxygen Saturation 97% 03/18/2022 5:58 AM EMOTIONAL DISABILITIES TEACHER Inhaled Oxygen Concentration - - Weight 88.9 kg (196 lb) 04/15/2023 11:06 AM EMOTIONAL DISABILITIES TEACHER Height 167.6 cm (5' 6) 04/15/2023 11:06 AM EMOTIONAL DISABILITIES TEACHER Body Mass Index 31.64 04/15/2023 11:06 AM EMOTIONAL DISABILITIES TEACHER Plan of Treatment Health Maintenance Due Date [...] 04/16/2023 04/15/2018, 02/08/2015 Covid-19 Vaccine (4 - 2024-2 6 season) 2024 01/20/2021, 06/05/2020, 05/08/2020 Influenza Vaccine (#1) 2024 2, 01/20/2021, 01/31/2020, Additional history exists DTaP/Tdap/Td Vaccine (3 - Td or Tdap) 01/08/2026 01/09/2016, 06/03/2005 Hepatitis C Screening Completed 07/29/2017 Colon Cancer Screening-CT Colonography Discontinued 04/15/2018, 02/08/2015 Colon Cancer Screening-DNA Stool Discontinued 04/16/19 19, 02/08/2015 Colon Cancer Screening-FIT Discontinued 04/15/2018, Colon Cancer Screening-Sigmoidoscopy Discontinued 04/15/2018, 02/08/2015 Abdominal Aortic Aneurysm (A AA) Screen Completed 03/16/2022 Medical Devices Implanted Type Area Trial Management Associate Device Identifier Shelf Expiration Date Model / Serial / Lot Depuy Orthopaedics Inc [id number] [place] 58mm Sector Hip Shell Acetabular Gription Sterile Latex Free - [id number] Implanted:Qty: 1 on 2019 by Kee Cruz MD at [facility] Left: Hip [employer]uy [employer] Inc 12/08/2028 [id number] / / [id number] Depuy [employer] [id number] [place] 58mm 36mm Hip Neutral Liner Acetabular Altrx Sterile Latex Free - [id number] Implanted:Qty: 1 on 2019 by Kee Cruz MD at [facility] Left: Hip [employer]uy [employer] 09/07/2024 [id number] / / [id number] Depuy [employer] [id number] Actis 105mm Collar Hip 5 High Offset Stem Femoral - [id number] Implanted:Qty: 1 on 2019 by Kee Cruz MD at [facility] Left: Hip [employer]uy [employer] 09/07/2029 [id number] / / [id number] Depuy [employer] [id number] Articul/Humphrey 36mm Cementless Hip +1.5mm 12/14 Taper Head Femoral Latex Free - [id number] Implanted:Qty: 1 on 2019 by Kee Cruz MD at [facility] Left: Hip [employer]uy [employer] 09/07/2024 [id number] / / [id number] Depuy [employer] [id number] [place] 58mm Sector Hip Shell Acetabular Gription Sterile Latex Free - [id number] Implanted:Qty: 1 on 05/01/2020 by Kee Cruz MD at [facility] Right: Hip [employer]uy [employer] 03/10/2030 [id number] / / [id number] Depuy [employer] Inc [id number] [place] 58mm 36mm Hip Neutral Liner Acetabular Altrx Sterile Latex Free - [id number] Implanted:Qty: 1 on 05/01/2020 by Kee Cruz MD at [facility] Right: Hip [employer]uy [employer] 03/10/2025 [id number] / / [id number] Depuy [employer] Inc [id number] Actis 105mm Collar Hip 5 High Offset Stem Femoral - [id number] Implanted:Qty: 1 on 05/01/2020 by Kee Cruz MD at [facility] Right: Hip [employer]uy [employer] 02/07/2030 [id number] / / [id number] Depuy [employer] Inc [id number] Articul/Humphrey 36mm Cementless Hip +5mm 12/14 Taper Head Femoral Latex Free - [id number] Implanted:Qty: 1 on 05/01/2020 by Kee Cruz MD at [facility] Right: Hip [employer]uy [employer] 02/07/2025 [id number] / / [id number] Procedures Procedure Name Priority Date/Time Associated Diagnosis Comments CT ABDOMEN PELVIS WO CONTRAST ED 03/16/2022 7:05 AM EMOTIONAL DISABILITIES TEACHER PSA SCREEN Routine 01/20/2021 9:34 AM EMOTIONAL DISABILITIES TEACHER Prostate cancer screening COLONOSCOPY 04/15/2018 2:47 PM EMOTIONAL DISABILITIES TEACHER HEPATITIS C ANTIBODY Routine 07/29/2017 9:42 AM CDT Need for hepatitis C screening test from Last 3 Months or Most Recently Relevant to Health Maintenance Results * CT Abdomen Pelvis WO Contrast (03/16/2022 7:05 AM EMOTIONAL DISABILITIES TEACHER) Anatomical Region Laterality Modality Body N/A Computed Tomogra phy 03/16/2022 7:08 AM EMOTIONAL DISABILITIES TEACHER Narrative 03/16/2022 7:25 AM EMOTIONAL DISABILITIES TEACHER EXAM DESCRIPTION: CT ABDOMEN PELVIS WO CONTRAST [...] Findings Committee. J Am Luciana Radiol. 2017 Sep;14(8):5286-5732. THIS IS AN ELECTRONICALLY VERIFIED FINAL REPORT 03/16/2022 7:25 AM - Electronically signed by Bernabe Dickson M.D. BC: KUNAL Report ID: [id number] Reading Location: [id number] Procedure Note Bernabe Dickson MD - 03/16/2022 [...] Findings Committee. J Am Luciana Radiol. 2017 Sep;14(8):6702-5760. THIS IS AN ELECTRONICALLY VERIFIED FINAL REPORT 03/16/2022 7:25 AM - Electronically signed by Bernabe Dickson M.D. BC: KUNAL Report ID: [id number] Reading Location: [place] [address] us Los Cruz MD IMG CT PROCEDURES F inal Result * PSA screen (01/20/2021 9:34 AM EMOTIONAL DISABILITIES TEACHER) PSA-Total 0.91 <=5.40 ng/mL [facility] ([place]) Comment: Interpretive Data AGE SEX REFERENCE INTERVAL 0 minutes-150 years Female None 0 minutes-49 years Male None 50-59 years Male 0-3.90 60-69 years Male 0-5.40 70-79 years Male 0-6.20 80-150 years Male 0-6.20 Current interpretive data last revised 2018. Testing performed by: [facility], [address] [place] [address]., [id number] Blood 01/20/2021 9:34 AM EMOTIONAL DISABILITIES TEACHER 01/20/2021 2:26 PM EMOTIONAL DISABILITIES TEACHER us Karen Diaz LEATHER STITCHER LAB BLOOD ORDERABLES Final Resul t [facility] ([place]) 1 [facility] [place] [address] * COLONOSCOPY (04/15/2018 2:47 PM EMOTIONAL DISABILITIES TEACHER) Anatomical Region Laterality Modality Other Narrative Procedure Note Nirav Euceda MD - 04/15/2018 2:47 PM CST [facility] Endoscopy Lab Patient Name: Willie [...] 2 weeks. Procedure Code(s): --- Professional --- 42660, Colonoscopy, flexible; diagnostic, including collection of specimen(s) by brushing or washing,when performed (separate procedure) Diagnosis Code(s): --- Professional --- K64.8, Other hemorrhoids K64.4, Residual hemorrhoidal skin tags K62.5, Hemorrhage of anus and rectum K57.30, Diverticulosis of large intestine without perforation or abscess without bleeding CPT copyright 2017 [employer]. All rights reserved. The codes documented in this report are preliminary and upon director of intercollegiate athletics reviewmay be revised to meet current compliance [...] LAB MICROBIOLOGY - GENERAL ORDERABLES Final Result [facility] [id number] [place] [place] [address] from Last 3 Months or Most Recently Relevant to Health Maintenance Insurance [facility] MEDICARE ADVANTAGE [facility]IC[facility] Address: [address] [address] [place] [address] AETNA MEDICARE GOLD AETNA MEDICARE GOLD Advance Directives For more information, please contact: [phone] * Full Code (Latest Code Status on File) Date Activated Date Inactivated Comments 03/16/2022 7:32 AM 03/18/2022 5:57 PM * Full Code Date Activated Date Inactivated Comments 2019 11:03 AM 11/28/2019 5:47 PM Care Teams Heavy Equipment Operator/Paver Relationship Specialty Start Date End Date Sumit Muñoz MD PCP - General Family Practice 03/16/22 Kee Cruz MD Surgeon Orthopedic Surgery 11/28/19
[2025-01-31 09:01] LABS: Hematocrit 49.9 % (42.0-52.0); Hemoglobin 16.1 g/dL (14.0-18.0); Immature Granulocyte Percent A 0.4 % (0-0.5); Lymphocytes Absolute Auto 2.08 K/mm3 (0.9-3.2); Mean Corpuscular HGB Conc 32.3 g/dl (32-36); Mean Corpuscular Hemoglobin 30.6 pg (26-34); Mean Corpuscular Volume 94.7 fl (80-100); Nucleated Red Blood Cells Absolute Auto 0.000 K/mm3 (0.0-0.012); Nucleated Red Blood Cells Perc 0.0 % (0.0-0.2); Platelet Count Result 149 k/mm3 (150-375); Red Blood Count 5.27 M/mm3 (4.6-6.20); White Blood Count 5.5 K/mm3 (4.5-10.0)
[2025-01-31 09:27] LABS: Alanine Aminotransferase 33 U/L (6-50); Albumin Level 4.3 g/dL (3.5-5.1); Alkaline Phosphatase 83 U/L (38-126); Anion Gap 9 mmol/L (4-12); Aspartate Amino Transferase 32 U/L (17-59); Bilirubin,Total 0.7 mg/dL (0.2-1.3); Blood Urea Nitrogen 16 mg/dL (9-20); Calcium 9.5 mg/dL (8.4-10.2); Carbon Dioxide 26 mmol/L (22-30); Chloride 106 mmol/L (98-107); Estimated Glomerular Filt Rate > 60; Glucose 96 mg/dL (65-110); Potassium 4.9 mmol/L (3.4-5.0); Sodium 141 mmol/L (137-145); Total Protein 7.2 g/dL (6.3-8.2)
[2025-01-31 10:03] LABS: Prostate Specific Antigen 1.4 ng/mL (< OR = 4.0)
[2025-01-31 10:22] LABS: Vitamin B12 913.0 pg/mL (239-931)
== END 2025-01-31 08:31 | disposition home or self-care (01) ==
LOC: ANHLAB 08:32
PROVIDERS: PCP Family Medicine; Visit Provider Family Medicine
DX: D69.6 Thrombocytopenia, unspecified (principal); Z12.5 Encounter for screening for malignant neoplasm of prostate; Z79.899 Other long term (current) drug therapy; I10 Essential (primary) hypertension; E78.5 Hyperlipidemia, unspecified; Z00.00 Encounter for general adult medical examination without abnormal findings
CPT/HCPCS: 36415; 80053; 82306; 82607; 84153; 85025; G0103